=== PATIENT | male | born 1945 | race Caucasian/White ===

== ENCOUNTER 2018-09-02 12:59 | Outpatient (REF) | payer MEDICARE, MEDICAID, SELFPAY ==
[2018-09-02 20:14] LABS: Anion Gap 8.7 mmol/L (3-11); BUN 16 mg/dL (7-18); CO2 28.3 mmol/L (21.0-32.0); Calcium 8.7 mg/dL (8.5-10.1); Chloride 102 mmol/L (98-107); Glucose 99 mg/dL (70-100); Potassium 4.7 mmol/L (3.5-5.1); Sodium 139 mmol/L (136-145); Vitamin B12 614 pg/mL (193-986)
== END 2018-09-02 13:19 ==
LOC: NCHCN 12:59
PROVIDERS: PCP Nurse Practitioner Family; Visit Provider Nurse Practitioner Family
DX: D51.0 Vitamin B12 deficiency anemia due to intrinsic factor deficiency (principal); I10 Essential (primary) hypertension
CPT/HCPCS: 80048; 82607

== ENCOUNTER 2019-03-02 12:10 | Outpatient (REF) | payer MEDICARE, MEDICAID, SELFPAY ==
[2019-03-02 13:57] LABS: HCT 40.2 % (40.0-50.0); HGB 13.6 g/dL (13.5-17.5); Mean Corp. HGB Concentration 33.8 g/dL (32.0-36.0); Mean Corpuscular Hemoglobin 29.7 pg (27.0-33.0); Mean Corpuscular Volume 87.8 fL (80-95); Mean Platelet Volume 11.6 fL (8.0-11.0); Platelet Count 236 x1000/uL (130-400); RBC 4.58 m/cumm (4.50-6.00); RBC Distribution Width 19.1 % (11.8-14.1); White Blood Cell Count 13.73 k/cumm (4.4-10.8)
[2019-03-02 14:29] LABS: Vitamin B12 829 pg/mL (193-986)
== END 2019-03-02 12:30 ==
LOC: NCHCN 12:10
PROVIDERS: PCP Nurse Practitioner Family; Visit Provider Nurse Practitioner Family
DX: D51.0 Vitamin B12 deficiency anemia due to intrinsic factor deficiency (principal)
CPT/HCPCS: 85027; 82607

== ENCOUNTER 2019-03-16 11:10 | Outpatient (REF) | payer MEDICARE, MEDICAID, SELFPAY ==
[2019-03-16 18:57] LABS: Anion Gap 9.5 mmol/L (3-11); BUN 14 mg/dL (7-18); CO2 27.5 mmol/L (21.0-32.0); CREATININE 0.84 mg/dL (0.70-1.30); Calcium 8.6 mg/dL (8.5-10.1); Calculated LDL 124 mg/dL; Chloride 101 mmol/L (98-107); Cholesterol 204 mg/dL (50-200); Glucose 96 mg/dL (70-100); HDL Cholesterol 55 mg/dL (40-60); Potassium 4.5 mmol/L (3.5-5.1); Sodium 138 mmol/L (136-145); Triglyceride 128 mg/dL (30-150)
== END 2019-03-16 11:30 ==
LOC: NCHCN 11:10
PROVIDERS: PCP Nurse Practitioner Family; Visit Provider Nurse Practitioner Family
DX: E78.5 Hyperlipidemia, unspecified (principal); I10 Essential (primary) hypertension
CPT/HCPCS: 80048; 80061; 83721

== ENCOUNTER 2020-03-29 11:08 | Outpatient (REF) | payer MEDICARE, MEDICAID, SELFPAY ==
[2020-03-29 18:36] LABS: HCT 32.9 % (40.0-50.0); HGB 10.3 g/dL (13.5-17.5); MCH 31.2 pg (27.0-33.0); MCHC 31.3 % (32.0-36.0); MCV 99.7 fL (80-95); Platelet Count 272 10^3/uL (130-400); RDW 17.6 % (11.8-14.1); RDW-SD 64.3 fL
[2020-03-29 19:27] LABS: Anion Gap 8.2 mmol/L (3-11); BUN 26 mg/dL (7-18); CO2 26.8 mmol/L (21.0-32.0); CREATININE 1.17 mg/dL (0.70-1.30); Chloride 105 mmol/L (98-107); Glucose 101 mg/dL (74-106); Potassium 4.8 mmol/L (3.5-5.1); Sodium 140 mmol/L (136-145); Vitamin B12 1319 pg/mL (193-986)
[2020-03-29 19:46] LABS: WBC 94.44 10^3/uL (4.4-10.8)
== END 2020-03-29 11:28 ==
LOC: NCHCN 11:08
PROVIDERS: PCP Nurse Practitioner Family; Visit Provider Nurse Practitioner Family
DX: I10 Essential (primary) hypertension (principal); D51.0 Vitamin B12 deficiency anemia due to intrinsic factor deficiency
CPT/HCPCS: 80048; 85027; 82607

== ENCOUNTER 2020-04-07 22:28 | Outpatient (REF) | payer MEDICARE, MEDICAID, SELFPAY ==
[2020-04-07 14:54] LABS: HCT 29.7 % (40.0-50.0); HGB 9.5 g/dL (13.5-17.5); MCH 31.7 pg (27.0-33.0); MPV 11.5 fL (8.0-11.0); Platelet Count 306 10^3/uL (130-400); RDW 17.4 % (11.8-14.1); RDW-SD 62.8 fL
[2020-04-07 15:10] LABS: WBC 100.42 10^3/uL (4.4-10.8)
[2020-04-07 15:33] LABS: Absolute Lymphocyte Count 7.03 10^3/uL (1.2-3.4); Absolute Monocyte Count 11.05 10^3/uL (0.1-0.8); Absolute Neutrophil Count 61.26 10^3/uL (1.2-6.7); Bands % 19; Metamyelocytes % 12; Myelocytes % 9; Nucleated RBC 1 %
[2020-04-07 15:34] LABS: Diff Comment Manual Differential
== END 2020-04-07 22:48 ==
LOC: NCHCN 22:28
PROVIDERS: PCP Nurse Practitioner Family; Visit Provider Nurse Practitioner Family
DX: D72.829 Elevated white blood cell count, unspecified (principal)
CPT/HCPCS: 85025

== ENCOUNTER 2020-06-17 13:36 | Outpatient (REF) | payer MEDICARE, MEDICAID, SELFPAY ==
[2020-06-17 18:54] LABS: Abs Immature Grans 0.22 10^3/uL (0.0-0.06); Absolute Basophil Count 0.27 10^3/uL (0.0-0.2); Absolute Eosinophil Count 0.28 10^3/uL (0.0-0.7); Absolute Lymphocyte Count 2.47 10^3/uL (1.2-3.4); Absolute Monocyte Count 3.65 10^3/uL (0.1-0.8); Absolute Neutrophil Count 5.32 10^3/uL (1.2-6.7); Basophils % 2.2; Eosinophils % 2.3; HCT 30.9 % (40.0-50.0); HGB 10.2 g/dL (13.5-17.5); Immature Grans % 1.8; Lymphocytes % 20.2; MPV 10.9 fL (8.0-11.0); Monocytes % 29.9; Neutrophils % 43.6; Nucleated RBC 0 %; Platelet Count 394 10^3/uL (130-400); RBC 3.09 10^6/uL (4.36-5.78); RDW 18.7 % (11.8-14.1); WBC 12.21 10^3/uL (4.4-10.8)
[2020-06-17 19:14] LABS: Diff Comment Agrees w/ Instrument; RBC Morphology Normal
== END 2020-06-17 13:56 ==
LOC: LBN 13:36
PROVIDERS: PCP Nurse Practitioner Family; Visit Provider Internal Medicine Hematology & Oncology
DX: C93.10 Chronic myelomonocytic leukemia not having achieved remission (principal)
CPT/HCPCS: 85025

== ENCOUNTER 2020-06-30 13:56 | Outpatient (REF) | payer MEDICARE, MEDICAID, SELFPAY ==
[2020-06-30 18:02] LABS: Abs Immature Grans 0.26 10^3/uL (0.0-0.06); Absolute Basophil Count 0.24 10^3/uL (0.0-0.2); Absolute Eosinophil Count 0.13 10^3/uL (0.0-0.7); Absolute Lymphocyte Count 2.84 10^3/uL (1.2-3.4); Absolute Monocyte Count 4.47 10^3/uL (0.1-0.8); Absolute Neutrophil Count 3.89 10^3/uL (1.2-6.7); Eosinophils % 1.1; HCT 34.1 % (40.0-50.0); HGB 10.8 g/dL (13.5-17.5); Immature Grans % 2.2; MCH 32.9 pg (27.0-33.0); MCHC 31.7 % (32.0-36.0); Monocytes % 37.8; Neutrophils % 32.9; Nucleated RBC 0 %; Platelet Count 273 10^3/uL (130-400); RBC 3.28 10^6/uL (4.36-5.78); RDW-SD 72.5 fL; WBC 11.83 10^3/uL (4.4-10.8)
[2020-06-30 18:35] LABS: Diff Comment Agrees w/ Instrument; Macrocytosis 1+; Ovalocytes 2+
== END 2020-06-30 14:16 ==
LOC: NCHCN 13:56
PROVIDERS: PCP Nurse Practitioner Family; Visit Provider Nurse Practitioner Family
DX: D72.829 Elevated white blood cell count, unspecified (principal)
CPT/HCPCS: 85025

== ENCOUNTER 2020-07-14 14:07 | Outpatient (REF) | payer MEDICARE, MEDICAID, SELFPAY ==
[2020-07-14 19:48] LABS: Abs Immature Grans 0.85 10^3/uL (0.0-0.06); HCT 35.1 % (40.0-50.0); HGB 11.5 g/dL (13.5-17.5); MCH 33.2 pg (27.0-33.0); MCHC 32.8 % (32.0-36.0); MCV 101.4 fL (80-95); MPV 11.1 fL (8.0-11.0); Nucleated RBC 0 %; RBC 3.46 10^6/uL (4.36-5.78); RDW 18.7 % (11.8-14.1); RDW-SD 69.9 fL
[2020-07-14 20:19] LABS: Platelet Count 350 10^3/uL (130-400); WBC 15.89 10^3/uL (4.4-10.8)
[2020-07-14 20:20] LABS: Absolute Lymphocyte Count 3.18 10^3/uL (1.2-3.4); Absolute Monocyte Count 6.36 10^3/uL (0.1-0.8); Absolute Neutrophil Count 6.04 10^3/uL (1.2-6.7); Atypical Lymphocytes % 1; Bands % 3; Diff Comment Manual Differential; Macrocytosis 1+; Metamyelocytes % 1; Myelocytes % 1
[2020-07-14 20:21] LABS: Poikilocytes 1+
== END 2020-07-14 14:27 ==
LOC: NCHCN 14:07
PROVIDERS: PCP Nurse Practitioner Family; Visit Provider Nurse Practitioner Family
DX: D51.0 Vitamin B12 deficiency anemia due to intrinsic factor deficiency (principal)
CPT/HCPCS: 85025

== ENCOUNTER 2020-07-28 19:34 | Outpatient (REF) | payer MEDICARE, MEDICAID, SELFPAY ==
[2020-07-28 18:12] LABS: Abs Immature Grans 0.56 10^3/uL (0.0-0.06); HCT 33.5 % (40.0-50.0); MCH 33.2 pg (27.0-33.0); MCHC 32.8 % (32.0-36.0); MCV 101.2 fL (80-95); MPV 11.2 fL (8.0-11.0); Nucleated RBC 0 %; Platelet Count 369 10^3/uL (130-400); RBC 3.31 10^6/uL (4.36-5.78); RDW 18.5 % (11.8-14.1); RDW-SD 68.1 fL; WBC 14.89 10^3/uL (4.4-10.8)
[2020-07-28 18:55] LABS: Absolute Lymphocyte Count 4.32 10^3/uL (1.2-3.4); Absolute Monocyte Count 5.51 10^3/uL (0.1-0.8); Absolute Neutrophil Count 4.62 10^3/uL (1.2-6.7); Bands % 1; Diff Comment Manual Differential; Macrocytosis 1+; Metamyelocytes % 1; Polychromasia Present
[2020-07-28 18:56] LABS: Poikilocytes 1+
== END 2020-07-28 19:54 ==
LOC: NCHCN 19:34
PROVIDERS: PCP Nurse Practitioner Family; Visit Provider Nurse Practitioner Family
DX: D72.829 Elevated white blood cell count, unspecified (principal)
CPT/HCPCS: 85025

== ENCOUNTER 2020-08-11 14:02 | Outpatient (CLI) | payer MEDICARE, MEDICAID, SELFPAY ==
[2020-08-11 14:36] LABS: Abs Immature Grans 0.31 10^3/uL (0.0-0.06); Absolute Eosinophil Count 0.27 10^3/uL (0.0-0.7); Absolute Lymphocyte Count 2.91 10^3/uL (1.2-3.4); Basophils % 1.1; Eosinophils % 2.2; HCT 34.5 % (40.0-50.0); HGB 11.4 g/dL (13.5-17.5); Immature Grans % 2.5; Lymphocytes % 23.7; MCH 33.7 pg (27.0-33.0); MCV 102.1 fL (80-95); MPV 10.5 fL (8.0-11.0); Monocytes % 29.3; Neutrophils % 41.2; Nucleated RBC 0 %; Platelet Count 350 10^3/uL (130-400); RBC 3.38 10^6/uL (4.36-5.78); RDW-SD 66.7 fL; WBC 12.27 10^3/uL (4.4-10.8)
[2020-08-11 14:45] LABS: Absolute Basophil Count 0.13 10^3/uL (0.0-0.2); Absolute Neutrophil Count 5.06 10^3/uL (1.2-6.7)
[2020-08-11 14:59] LABS: Anisocytosis 2+; Diff Comment Agrees w/ Instrument; Macrocytosis 2+
[2020-08-11 15:00] LABS: Poikilocytes 2+
[2020-08-11 17:08] LABS: ALT 12 U/L (16-63); AST 12 U/L (15-37); Albumin 4.2 g/dL (3.4-5.0); Alkaline Phosphatase 60 U/L (46-116); Anion Gap 9.6 mmol/L (3-11); BUN 20 mg/dL (7-18); CO2 25.4 mmol/L (21.0-32.0); Calcium 8.9 mg/dL (8.5-10.1); Chloride 101 mmol/L (98-107); Estimated GFR 58.71 (mL/min/1.73m2); Glucose 95 mg/dL (74-106); Potassium 4.9 mmol/L (3.5-5.1); Sodium 136 mmol/L (136-145); Total Protein 7.5 g/dL (6.4-8.2)
== END 2020-08-11 14:22 ==
PROVIDERS: PCP Nurse Practitioner Family; Visit Provider Internal Medicine Hematology & Oncology
DX: C93.10 Chronic myelomonocytic leukemia not having achieved remission (principal)
CPT/HCPCS: 36415; 80053; 85025

== ENCOUNTER 2020-11-02 14:41 | Observation (INO) | payer MEDICARE, MEDICAID, SELFPAY ==
[2020-11-02] VITALS (181 sets, daily range): BP systolic 54–134; BP diastolic 21–87; PULSE 52–179; RESP 9–26; TEMP 36.6; O2SAT 95–100
--- NOTE | 2020-11-02 14:30 | RT.EKG_ITS ---
APPROVED REPORT Exam: Resting ECG Patient Location: E HR:177 bpm ECG Measurements Heart Rate 177 AXIS ND [id number] P [id number] QRSd 80 QRS 7 QT 303 T 91 QTc 520 Conclusion Atrial fibrillation with rapid V-rate...A-rate 517 Repolarization abnormality, prob rate related...ST dep, T neg, tachycardia. Suspect SVT more than Afib. Appears regular. Diffuse ST depression. No STEMI.
--- NOTE | 2020-11-02 14:45 | RT.EKG_ITS ---
APPROVED REPORT Exam: Resting ECG Patient Location: E HR:175 bpm ECG Measurements Heart Rate 175 AXIS MI 60 P 192 QRSd 81 QRS -7 QT 265 T 111 QTc 454 Conclusion Supraventricular tachycardia...V-rate>(220-age), QRSd<120 Repolarization abnormality, prob rate related...ST dep, T neg, tachycardia I have reviewed and interpreted ECG and agree with software generated interpretation.
--- NOTE | 2020-11-02 15:00 | RT.EKG_ITS ---
APPROVED REPORT Exam: Resting ECG Patient Location: E HR:57 bpm ECG Measurements Heart Rate 57 AXIS [place] 153 P 39 QRSd 85 QRS -13 QT 370 T 51 QTc 362 Conclusion Sinus bradycardia. no diagnostic st changes
--- NOTE | 2020-11-02 15:03 | ED.GENADUL_ITS ---
Discharge Plan Disposition Patient Disposition: [facility] INPATIENT Condition: Stable Discharge Details Clinical Impression: SVT (supraventricular tachycardia), Chest pain, Elevated troponin Admit Date/Time: 11/03/20 08:46 Admit Provider: Adam Vigil Attending Provider: Adam Vigil Primary Care Provider: Deborah Prescott ED Provider: Nelda Lance Discharge Data Discharge Date/Time-TO BE ENTERED AT DEPARTURE: 11/03/20 10:31 Medical Decision Making <SHIRIN Geller - Last Filed: 11/03/20 08:25> This is a 75-year-old gentleman, past medical history of leukemia, hypertension, SVT, presenting to the ER today for what he described as a rapid heart rate that began around 10 AM. Seen by his primary care provider prior to arrival, noted to be in SVT, sent to the ER for evaluation. Upon arrival heart rate noted to be in the 180s, blood pressure 93/64. Patient is awake, alert, normal mentation. Case was immediately discussed with Dr. Lance, immediately obtained EKG and IV access with IV fluid infusing. Initial EKG performed at 1447, please see official report by Dr. Lance. Question of atrial fibrillation with artifact versus SVT, ventricular rate in the 170s. We immediately obtained a repeat EKG at 1453 for clarity. This appears to be more consistent with supraventricular tachycardia, ventricular rate of 175. Attempted Valsalva maneuvers, unsuccessful. The case was again discussed with Dr. Lance. Will proceed with adenosine. The crash cart was brought into room 2. This was occurring as there was a shift change, supervising physician is now Dr. Julien who is immediately brought up to speed as to what was happening with Mr. Rojas. He was in room for evaluation, please see his note. We initially tried 6 mg of adenosine without any change of rhythm. Subsequently gave 12 mg x 2 without any change. A second line of IV access obtained. Patient given a 250 IV fluid bolus. Will now attempt 10 IV Cardizem and initiate a drip starting at 5 but will promptly increase to 10 and subsequently 15. Heart rate now at 158. Blood pressure is 83/64. Cardizem drip increased to 10. Heart rate remaining in the 160s, blood pressure seems to be stable in the 90s over 60s. We will once again increase the drip to 15. Heart rate remaining in the 160s, 2 view chest x-ray changed to a one-view portable. Patient also given full dose aspirin. I was in the process of signing the patient out to my colleague SHIRIN Paez at approximately 1558and on the library monitor we witnessed his rhythm break, heart rate of 62. Will obtain a repeat EKG. Cardizem drip discontinued Medical Records Medical records reviewed: Yes I reviewed the patient's medical records. Lab Data Lab results reviewed: Yes I reviewed the patient's lab results. Lab results narrative: Laboratory Tests Range/Units 11/02/20 11/02/20 11/02/20 14:50 14:50 14:50 WBC (4.4-10.8) 10^3/uL 14.18 H RBC (4.36-5.78) 10^6/uL 3.79 L Hgb (13.5-17.5) g/dL 12.6 L Hct (40.0-50.0) % 38.7 L MCV (80-95) fL 102.1 H MCH (27.0-33.0) pg 33.2 H MCHC (32.0-36.0) % 32.6 RDW (11.8-14.1) % 18.0 H Plt Count (130-400) 10^3/uL 338 MPV (8.0-11.0) fL 10.3 Immature Gran % 2.4 Neutrophils % 41.3 Lymphocytes % 19.2 Monocytes % 35.3 Eosinophils % 0.8 Basophils % 1.0 Nucleated RBC % % 0 Absolute Neutrophils (1.2-6.7) 10^3/uL 5.86 Absolute Lymphocytes (1.2-3.4) 10^3/uL 2.72 Absolute Monocytes (0.1-0.8) 10^3/uL 5.01 H Absolute Eosinophils (0.0-0.7) 10^3/uL 0.11 Absolute Basophils (0.0-0.2) 10^3/uL 0.14 RBC Morphology See below Macrocytosis 2+ PT (9.3-11.0) sec 10.4 INR (0.9-1.1) 1.0 APTT (21.0-27.5) sec 26.0 Sodium (136-145) mmol/L 137 Potassium (3.5-5.1) mmol/L 4.8 Chloride (98-107) mmol/L 101 Carbon Dioxide (21.0-32.0) mmol/L 25.6 Anion Gap (3-11) mmol/L 10.4 BUN (7-18) mg/dL 19 H Creatinine (0.70-1.30) mg/dL 1.2 Estimated GFR/1.73 m2 (mL/min/1.73m2) 58.71 Glucose (74-106) mg/dL 108 H Calcium (8.5-10.1) mg/dL 8.6 Magnesium (1.8-2.4) mg/dL 1.7 L Total Bilirubin (0.2-1.0) mg/dL 1.1 H AST (15-37) U/L 13 L ALT (16-63) U/L 18 Alkaline Phosphatase (46-116) U/L 77 Troponin I (<0.06) ng/mL < 0.05 Total Protein (6.4-8.2) g/dL 8.2 Albumin (3.4-5.0) g/dL 4.1 TSH (0.36-3.74) uIU/mL 1.98 <Paco Julien MD - Last Filed: 11/02/20 16:17> Patient seen, examined [id number], managed at the bedside with Mr. Connell. I agree with his plan. <SHIRIN Serrano - Last Filed: 11/04/20 11:00> Care transitioned to myself from Adam Connell PA-C with repeat troponin pending. Patient had initially presented with SVT with a rate in the 170s. At the time I assumed care, patient had just transitioned to NSR with rate of 62. Patinet was reevaluated, he states that his symptoms have resolved, no persistent CP. Repeat ECG was obtained and reviewed by Dr. Julien. Patient was in sinus bradycardia with rate of 57, no acute ischemic changes noted. Pressure is stable. Plan for 4 hour troponin. Repeat troponin is elevated at 0.34. This is likely demand associated with his prolonged SVT. He is not having any CP. Received ASA initially. Discussed with patient. We do not have beds here. [place] [facility] [place] no beds are available. Consulted with [facility] cardiology and spoke with Dr. Cope. He advised likely demand and does not feel that emergent intervention is warranted. He does not feel that transfer is appropriate at this time nor do they have beds. He advised to continue to trend troponins and obtain stress testing tomorrow. Patient reports that he had a stress test and echo last year at [facility]. Spoke with local hospitals that have inpatient beds, they are unable to accept patient. Plan to keep patient in the ED and continue to trend his troponins. Patient and his prefer that he remain here if possible. Patient remains hemodynamically stable and asymptomatic. He is eating dinner. Repeat troponin stable at 0.40. Spoke with Dr. aJy with [facility] [place]. He did not recommend heparinizing the patient. He did advise that at the time of discharge patient metoprolol could be increased to 50 mg 3 times daily or continue with the twice daily dosing and reserve 1 tab for as needed use if he has any recurrence of his SVT. Patient remains asymptomatic at this time. He did not recommend further medication currently. At the end of my shift, care transition to Dr. Scott to continue to trend troponins with plan for stress test in the morning. 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 <Nelda Lance DO - Last Filed: 11/05/20 11:11> 0800 --please see previous providers notes for initial presentation, exam and plan. Case endorsed to follow-up with hospitalist this morning for admission for continued monitoring, trending troponins and hopeful stress test today. board of education secretary discussed with cardiology office and they can attempt to do MPI stress today but will take time to receive the injectable and they are done at [address] Rosenberg and will admit for observation, and will attempt to get stress test today but will plan for outpatient stress test if unable. Patient is currently chest pain-free. 0845 --radiology is able to do the MPI stress this morning. 1030 --Pt in stress lab now. Stress lab called to state they spoke with Dr. Bonner who is not recommending stress test at this time as his heart rate was significantly elevated yesterday and his troponins are still elevated. He is recommending they do the stress portion on Saturday. Patient to go directly to the floor at this time. HPI <SHIRIN Geller - Last Filed: 11/03/20 08:25> General Mode of arrival: ambulatory . Date/Time Provider Initiated Documentation: 11/02/20 14:42 . Limitations to Documentation: no limitations . Information obtained by: patient . HPI Narrative: This is a 75-year-old gentleman, presenting to the ER for evaluation. Apparently he was seen by his primary care office prior to arrival, had an EKG and was found to be in SVT, sent immediately to the ER. Patient states that he has a past medical history of leukemia, hypertension, and SVT. He is followed by cardiology in [place]. He states that at approximately 10 AM this morning while at rest he felt his heart race with an associated 4 out of 10 pressure on the left of his chest. He was asymptomatic prior to that. He denies recent illness or trauma. He denies headache, neck pain, shortness of breath, back pain, neck pain, abdominal pain, nausea, vomiting, numbness, tingling, weakness. He states that he has been having these episodes for several years and was placed on metoprolol. He questions if he needs to be placed on a calcium channel rod via his own research. He states over the past several months he has been having increasing induration episodes as well as frequency. Typically they do not last this long, they resolve spontaneously, and he does not seek any medical attention. Related Data Home Medications Medication Instructions Recorded Confirmed hydroxyurea 1,000 mg PO DAILY 11/02/20 11/03/20 lisinopril-hydrochlorothiazide 1 tab PO DAILY 11/02/20 11/02/20 metoprolol tartrate 50 mg PO BID 11/02/20 11/02/20 Allergies Allergy/AdvReac Type Severity Reaction Status Date / Time Sulfa (Sulfonamide Allergy Unverified 11/02/20 14:57 Antibiotics) General Stated Complaint: Palpitatns BAUTISTA: 2 Review of Systems <SHIRIN Geller - Last Filed: 11/03/20 08:25> Constitutional Constitutional: Denies fatigue, Denies fever(s), Denies headache(s) and Denies weakness Eyes Eyes: Denies change in vision ENT Ears, Nose, Mouth, and Throat: Denies headache(s) Cardiovascular Cardiovascular: Reports chest pain, Reports palpitations and Denies dyspnea Respiratory Respiratory: Denies cough and Denies dyspnea Gastrointestinal Gastrointestinal: Denies abdominal pain, Denies nausea and Denies vomiting Genitourinary Genitourinary: Denies dysuria Musculoskeletal Musculoskeletal: Denies back pain, Denies numbness and Denies tingling Integumentary/Breasts Skin/Breast: Denies rash Neurologic Neurologic: Denies headache(s), Denies numbness, Denies tingling and Denies weakness Endocrine Endocrine: Denies fatigue and Reports palpitations Hematologic/Lymphatic Hematologic/Lymphatic: Denies easy bleeding and Denies easy bruising PFSH <SHIRIN Geller - Last Filed: 11/03/20 08:25> Medical History (Updated 11/05/20 @ 11:11 by Nelda Lance DO) CML (chronic myelocytic leukemia) HTN (hypertension) Hx of hyperlipidemia Kidney stones Obesity SVT (supraventricular tachycardia) Surgical History (Updated 11/03/20 @ 09:25 by Nelda Lance DO) Kidney stones kidney stone removal Social History Smoking/Tobacco Use Status: Former Tobacco Use Smoking risk assessment performed?: Yes Alcohol Intake: former Drug use: Never Do you feel safe at home: Yes Do you feel safe in your relationship?: Yes Exam <SHIRIN Geller - Last Filed: 11/03/20 08:25> Const General: cooperative and healthy appearing Orientation: alert, awake and oriented x3 HENMT Head: normal to inspection, normocephalic and atraumatic Face and sinus: normal facial exam Mouth: moist mucous membranes Eyes General: appearance normal, both eyes and all related structures Eyelids: eyelids normal Conjunctivae: conjunctivae normal Neck Neck: normal visual inspection, full ROM, trachea midline, supple and nontender Resp Effort & Inspection: normal respiratory effort and able to speak in complete sentences Auscultation: clear to auscultation bilaterally Cardio Rate: tachycardic (180s) Rhythm: regular rhythm GI Inspection: normal to inspection Palpation: soft, no pulsatile masses and nontender Back/Spine/Pelvis Back: No back tenderness Skin General skin exam: no rashes or lesions noted Neuro General: patient alert, patient awake, patient oriented x3, moves all extremities and no focal motor deficits Cognition: normal cognition Speech: speech normal Gait: normal gait Motor: muscle tone normal throughout Sensory Exam: no sensory deficits noted Extrem General: normal to inspection, full ROM, capillary refill normal and no calf t enderness Psych Appearance: grossly normal Mental Status: mental status grossly normal Course <SHIRIN Geller - Last Filed: 11/03/20 08:25> Vital Signs Vital signs: Vital Signs Temperature 36.6 C 11/02/20 14:47 Pulse 177 H 11/02/20 14:47 Respiratory Rate 18 11/02/20 14:47 Blood Pressure 93/64 L 11/02/20 14:47 Pulse Oximetry 97 11/02/20 14:47 Temperature 36.6 C 11/02/20 14:47 Temperature Source Temporal Artery Scan 11/02/20 14:47 Pulse 177 H 11/02/20 14:47 Respiratory Rate 18 11/02/20 14:47 Respiratory Effort Non-Labored 11/02/20 14:55 Blood Pressure 93/64 L 11/02/20 14:47 Blood Pressure Position Supine 11/02/20 14:47 Pulse Oximetry 97 11/02/20 14:47 Oxygen Delivery Method Room Air 11/02/20 14:47 Oxygen Flow Rate 0 11/02/20 14:47 Pain Level 4 11/02/20 14:47 Critical Care Time <SHIRIN Geller Last Filed: 11/03/20 08:25> Critical Care Time Critical Care Time: Yes Total Critical Care Time: 45 Attestation: Upon my evaluation, this patient had a high probability of clinically significant, life-threatening deterioration due to their current medical conditions, which required my direct attention, intervention, and personal management. I have personally provided greater than 30 minutes of critical care time exclusive of the time spend on separately billable procedures. Time includes obtaining a history, examining the patient, pulse oximetry, review of laboratory data, radiology results, discussion with consultants, arranging urgent treatment with development of a management plan, evaluation of patient's response to treatment, and monitoring for potential decompensation. Interventions were performed as documented above. Sign Out <SHIRIN Geller Last Filed: 11/03/20 08:25> Sign Out Data: Sign Out Comment: Presented with what appeared to be SVT, given adenosine 6, 12, 12, without any change of symptoms. Subsequently given 10 IV Cardizem and a drip initiated at 5, up to 10, then subsequently up to 15. During signout rhythm converted. Obtaining repeat EKG. Last updated by Adam Connell PA at 11/02/20 16:10 Sign Out Comment: Care transition to Dr. Scott. Patient will be boarding in the ED overnight with plan to continue to trend troponins and stress testing tomorrow. [place] [facility] [place] that we could increase the patient metoprolol to 3 times daily dosing or continue with twice daily dosing and have him take 1 as needed if he has recurrence of his SVT. I feel that the elevated troponin is likely associated with demand ischemia from his long run of SVT. Last updated by Katharine Paez PA at 11/02/20 23:46 Sign Out Comment: Patient had SVT and elevated troponin. Patient has been rate and rhythm controlled during his evenings here. No beds are available at any surrounding facilities including [facility] and [facility]. Patient remaining here in the ED until stress test can be performed in morning. Troponins are downtrending, no chest pain. Patient remained stable. [facility] cardiology had no additional recommendations and does not recommend heparinization. Follow-up with [facility] after stress testing Last updated by Michael Scott DO at 11/03/20 06:23
[2020-11-02] MEDS: Normal Saline 1,000 ML 150 ML IV (15:09)
[2020-11-02] MEDS: Adenosine 6 MG/2 ML VIAL IVP (15:09)
[2020-11-02 15:12] LABS: Abs Immature Grans 0.34 10^3/uL (0.0-0.06); Absolute Basophil Count 0.14 10^3/uL (0.0-0.2); Absolute Eosinophil Count 0.11 10^3/uL (0.0-0.7); Absolute Lymphocyte Count 2.72 10^3/uL (1.2-3.4); Eosinophils % 0.8; HCT 38.7 % (40.0-50.0); HGB 12.6 g/dL (13.5-17.5); Immature Grans % 2.4; Lymphocytes % 19.2; MCH 33.2 pg (27.0-33.0); MCHC 32.6 % (32.0-36.0); MCV 102.1 fL (80-95); MPV 10.3 fL (8.0-11.0); Monocytes % 35.3; Neutrophils % 41.3; Nucleated RBC 0 %; Platelet Count 338 10^3/uL (130-400); RBC 3.79 10^6/uL (4.36-5.78); RDW-SD 67.7 fL; WBC 14.18 10^3/uL (4.4-10.8)
[2020-11-02] MEDS: Adenosine 6 MG/2 ML VIAL ×3 (15:15→15:20)
[2020-11-02 15:26] LABS: Prothrombin Time 10.4 sec (9.3-11.0)
[2020-11-02] MEDS: dilTIAZem 25 MG/5 ML VIAL 10 MG IVP (15:27)
[2020-11-02 15:33] LABS: Absolute Monocyte Count 5.01 10^3/uL (0.1-0.8); Absolute Neutrophil Count 5.86 10^3/uL (1.2-6.7)
[2020-11-02 15:34] LABS: ALT 18 U/L (16-63); AST 13 U/L (15-37); Albumin 4.1 g/dL (3.4-5.0); Alkaline Phosphatase 77 U/L (46-116); Anion Gap 10.4 mmol/L (3-11); BUN 19 mg/dL (7-18); Bilirubin, Total 1.1 mg/dL (0.2-1.0); CO2 25.6 mmol/L (21.0-32.0); CREATININE 1.2 mg/dL (0.70-1.30); Calcium 8.6 mg/dL (8.5-10.1); Chloride 101 mmol/L (98-107); Estimated GFR 58.71 (mL/min/1.73m2); Glucose 108 mg/dL (74-106); Magnesium 1.7 mg/dL (1.8-2.4); Potassium 4.8 mmol/L (3.5-5.1); Sodium 137 mmol/L (136-145); TSH 1.98 uIU/mL (0.36-3.74); Total Protein 8.2 g/dL (6.4-8.2); Troponin I < 0.05 ng/mL (<0.06)
[2020-11-02] MEDS: dilTIAZem 125 MG in Normal Saline 100 ML IV (15:36)
[2020-11-02 15:43] LABS: Diff Comment Diff Reviewed; Macrocytosis 2+
[2020-11-02] MEDS: Aspirin 81 MG CHEW 324 MG CH (15:59)
--- NOTE | 2020-11-02 16:05 | DI.RAD_ITS ---
EXAM: XR PORTABLE CHEST AP CLINICAL HISTORY: svt/pain TECHNIQUE: 2D digital imaging was performed. COMPARISON: CR CHEST 2 VIEWS PA,LAT from 02/19/2018 FINDINGS: MEDIASTINUM: Normal. HEART: Normal. PULMONARY VASCULATURE: Normal. LUNGS: Clear. PLEURAL SPACE: No pleural effusion or pneumothorax. BONE:Within normal limits for the patient's age. OTHER FINDINGS:Normal. IMPRESSION: No acute pulmonary findings. DATA REPOSITORY: RADIATION DOSE DELIVERED:
--- NOTE | 2020-11-02 16:11 | DI.VRAD_ITS ---
PROCEDURE INFORMATION: Exam: XR Chest Exam date and time: 11/02/2020 4:04 PM Age: 75 years old Clinical indication: Other: Svt/pain; Chest pain; Type not specified TECHNIQUE: Imaging protocol: XR of the chest Views: 1 view. COMPARISON: CR CHEST 2 VIEWS PA,LAT 02/19/2018 7:34 PM FINDINGS: Lungs: Unremarkable. No consolidation. Pleural spaces: Unremarkable. No pleural effusion. No pneumothorax. Heart/Mediastinum: Unremarkable. No cardiomegaly. Bones/joints: Unremarkable. IMPRESSION: No acute findings. Dictated and Authenticated by: Kamorn Salazar MD. Ordering:LIU Medina MD
--- NOTE | 2020-11-02 16:29 | NUR.NOTE ---
pt provided with meal tray Nursing Note:
--- NOTE | 2020-11-02 16:50 | NUR.NOTE ---
pt asymptomatic with low BP Nursing Note:
[2020-11-02 19:17] LABS: Troponin I 0.34 ng/mL (<0.06)
--- NOTE | 2020-11-02 19:30 | RT.EKG_ITS ---
APPROVED REPORT Exam: Resting ECG Patient Location: E HR:65 bpm ECG Measurements Heart Rate 65 AXIS TN 155 P 32 QRSd 90 QRS -15 QT 412 T 31 QTc 428 Conclusion Sinus rhythm...normal P axis, V-rate 60- 99
[2020-11-02] MEDS: Metoprolol 50 MG TAB PO (21:01)
--- NOTE | 2020-11-02 21:45 | RT.EKG_ITS ---
APPROVED REPORT Exam: Resting ECG Patient Location: E HR:57 bpm ECG Measurements Heart Rate 57 AXIS AR 153 P 41 QRSd 92 QRS -10 QT 439 T 29 QTc 427 Conclusion Sinus Bradycardia, rate [address] elevation
[2020-11-03] VITALS (95 sets, daily range): BP systolic 52–152; BP diastolic 41–105; PULSE 49–73; RESP 8–24; TEMP 36; O2SAT 93–98
--- NOTE | 2020-11-03 | DI.US_ITS ---
APPROVED REPORT EXAM: Comprehensive 2D, Doppler, and color-flow Echocardiogram Patient Location: ER Room/Bed: 7 Chisel Mortiser Operator: Varsha Felton RDCS (AE) Indications: SVT,Elevated troponin Other Information Study Quality: Good Conclusion Left Ventricle : The left ventricle is normal size. The left ventricular systolic function is normal. The left ventricular ejection fraction is within the normal range. Borderline concentric left ventri cular hypertrophy. There is normal LV segmental wall motion. The left ventricular diastolic function is normal. LVEF is 65%. Right Ventricle : The right ventricle is normal size. The right ventricular systolic function is norm al. The RVSP is 28.5 mmHg. Atria : Left atrium is mildly dilated. The right atrium size is normal. Aortic Valve : Aortic valve is calcified. The Aortic valve is sclerotic. Aortic valve is probably tri leaflet. No hemodynamically significant valvular aortic stenosis. Mild aortic regurgitation. Great Vessels : The aortic root is normal in size. The ascending aorta is mildly dilated. Aortic arch is not well visualized. IVC is normal in size and collapses >50% with inspiration. Please see remainder of study for further details. Wall motion Left Ventricle The left ventricle is normal size. The left ventricular systolic function is normal. The left ventric ular ejection fraction is within the normal range. Borderline concentric left ventricular hypertrophy . There is normal LV segmental wall motion. The left ventricular diastolic function is normal. There is no ventricular septal defect visualized. LVEF is 65%. Right Ventricle The right ventricle is normal size. The right ventricular systolic function is normal. The RVSP is 28 .5 mmHg. Atria Left atrium is mildly dilated. The right atrium size is normal. The interatrial septum is intact with no evidence for an atrial septal defect. Aortic Valve Aortic valve is calcified. The Aortic valve is sclerotic. Aortic valve is probably trileaflet. No hem odynamically significant valvular aortic stenosis. Mild aortic regurgitation. Mitral Valve The mitral valve is normal in structure. No evidence of mitral valve stenosis. Trace mitral regurgita tion. Tricuspid Valve The tricuspid valve is normal in structure. There is no tricuspid valve stenosis. Trace tricuspid reg urgitation. Pulmonic Valve The pulmonary valve is normal in structure. There is no pulmonic valvular stenosis. There is no pulmo mao valvular regurgitation. Great Vessels The aortic root is normal in size. The ascending aorta is mildly dilated. Aortic arch is not well vis ualized. IVC is normal in size and collapses >50% with inspiration. Pericardium There is no pericardial effusion. 2D Dimensions IVSD d PLAX 1.23 cm M: 0.6-1.2 LV Vol A2C d MOD 154.6 mL LVPW d PLAX 1.20 cm M: 0.6 - 1.2 LV Vol A4C d MOD 164.7 mL LVID d PLAX 5.63 cm M: 4.2 - 5.8 LA vol/ BSA A2C s A-L 39.4 mL/m2 LVDs 3.55 cm M: 2.5 - 4.0 LA vol/ BSA A4C s A-L 48.9 mL/m2 Ao Root d 3.61 cm M: 3.1 - 3.7 LA Vol/ BSA Biplane s A-L 44.0 mL/m2 RA Area A4C 14.49 cm2 LA Area A4C s MOD 27.89 cm2 RA Vol/ BSA A4C s A-L 17.7 mL/m2 LA Area A2C s MOD 25.12 cm2 Ao Asc Diam d 3.83 cm M: 2.6 - 3.4 LV EF A4C MOD 65.1 % LV EF Teichholz 65.8 % LV EF A2C MOD 65.9 % LVEF (Castañeda's) 63.77 % M: 52 - 72 LV EF Biplane MOD 63.8 % LV Volume 118.65 mL M: 62 - 150 SV 102.90 mL LV Volume Index 55.96 mL/m2 M: 34 - 74 SV Index 48.44 mL/m2 LV Vol Biplane MOD 161.3 mL FS 36.65 % M-Mode TAPSE 2.48 cm (M/F) >1.7 LV Diastology MV E' medial 0.096 (>0.07 m/s) E/A Ratio 1.2 LV E/e MED 10.20 (<14) MV E Vmax 0.98 (0.4-1.3 m/s) MV E' lateral 0.094 (>0.1 m/s) MV A Vmax 0.85 (0.4-1.3 m/s) LV E/e LAT 10.45 (<14) MV E/A Ratio 1.14 MV E/E' medial 10.25 MV E/E' lateral 10.46 Aortic Valve LVOT Area 3.86 cm2 AoV Area Vmax 2.47 cm2 LVOT Vmax 1.43 m/s AoV Area/ BSA (Vmax) 1.16 cm2/m2 LVOT Mean Charan. 0.86 m/s MATT Mean Charan. 2.11 cm2 LVOT Peak Grad 8.2 mmHg MATT Mean Charan. Index 0.99 cm2/m2 LVOT Mean Grad 3.6 mmHg AR DT 4267 msec LVOT VTI 0.349 m AR PHT 1237 msec LVOT Diam s 2.20 cm AoV Vmax 2.24 m/s Velocity Ratio 0.63 AoV Mean Charan. 1.58 m/s AoV Peak Grad 20.0 mmHg LVOT SV 134.69 mL AoV Mean Grad 11.2 mmHg AoV VTI 0.507 m AoV Area VTI 2.66 cm2 AoV Area/ BSA (VTI) 1.25 cm/m2 Mitral Valve MV DT 225 (160-240 msec) MR Vmax 4.33 m/s MV PHT 65 msec MR VTI 1.289 m MV Area PHT 3.37 cm2 MR Peak Grad 75.2 mmHg MV VTI 0.363 m MR Mean Grad 57.9 mmHg MV VTI Annulus 0.347 m MV Area VTI 3.55 (4.0-6.0 cm2) Pulmonary Valve PV Vmax 1.59 (0.5-1.5 m/s) RVOT Peak Gr. 3.23 mmHg PV Peak Grad 10.2 mmHg RVOT Mean Gr. 1.80 mmHg PV Mean Grad 5.3 mmHg RVOT VTI 0.231 m PV VTI 0.359 m RVOT Vmax 0.90 m/s Tricuspid Valve TR Peak Grad 25.5 mmHg TR Vmax 2.53 m/s RA Pressure 3.00 mmHg RVSP (TR) 28.5 mmHg
--- NOTE | 2020-11-03 00:30 | RT.EKG_ITS ---
APPROVED REPORT Exam: Resting ECG Patient Location: E HR:60 bpm ECG Measurements Heart Rate 60 AXIS [place] 155 P 31 QRSd 93 QRS -7 QT 445 T 32 QTc 445 Conclusion Sinus rhythm...normal P axis, V-rate 60- 99 Physician: No stemi, unchanged
[2020-11-03 01:11] LABS: Troponin I 0.33 ng/mL (<0.06)
--- NOTE | 2020-11-03 08:00 | DI.NM_ITS ---
APPROVED REPORT Patient Location: I Conclusion This resting myocardial perfusion imaging study showed a small area of perfusion defect of the romulo apical segment.
[2020-11-03 09:11] LABS: COVID-19 PCR Negative (Negative); Influenza A PCR Negative (Negative); Influenza B PCR Negative (Negative); RSV PCR Negative (Negative)
[2020-11-03 11:06] LABS: Abs Immature Grans 0.15 10^3/uL (0.0-0.06); Absolute Basophil Count 0.06 10^3/uL (0.0-0.2); Absolute Eosinophil Count 0.09 10^3/uL (0.0-0.7); Absolute Lymphocyte Count 1.42 10^3/uL (1.2-3.4); Absolute Monocyte Count 3.42 10^3/uL (0.1-0.8); Basophils % 0.6; Eosinophils % 0.9; HCT 33.6 % (40.0-50.0); HGB 11.3 g/dL (13.5-17.5); Immature Grans % 1.6; Lymphocytes % 14.9; MCH 33.5 pg (27.0-33.0); MCHC 33.6 % (32.0-36.0); MCV 99.7 fL (80-95); MPV 11.2 fL (8.0-11.0); Nucleated RBC 0 %; RBC 3.37 10^6/uL (4.36-5.78); RDW 17.8 % (11.8-14.1); RDW-SD 65.4 fL
[2020-11-03 11:10] LABS: Absolute Neutrophil Count 4.37 10^3/uL (1.2-6.7)
[2020-11-03 11:16] LABS: Anion Gap 8.7 mmol/L (3-11); BUN 15 mg/dL (7-18); CO2 24.3 mmol/L (21.0-32.0); Calcium 8.5 mg/dL (8.5-10.1); Chloride 106 mmol/L (98-107); Glucose 108 mg/dL (74-106); Magnesium 1.8 mg/dL (1.8-2.4); Potassium 4.4 mmol/L (3.5-5.1); Sodium 139 mmol/L (136-145)
[2020-11-03 11:19] LABS: Troponin I 0.17 ng/mL (<0.06)
[2020-11-03 11:25] LABS: Platelet Count 237 10^3/uL (130-400)
[2020-11-03 11:26] LABS: Anisocytosis 2+; Diff Comment Agrees w/ Instrument
[2020-11-03 11:27] LABS: Ovalocytes 2+; Poikilocytes 1+
--- NOTE | 2020-11-03 11:52 | W.PM.DS.N ---
Date of service: 11/03/20 Time of Service: 11:53 DS: Diagnosis Discharge Diagnosis (1) SVT (supraventricular tachycardia): Status: Acute Discharge Plan Disposition Patient Disposition: HOME Condition: Stable Discharge Details Reason For Visit: SVT, CHEST PAIN, ELEVATED TROPONIN Admit Date/Time: 11/03/20 08:46 Admit Provider: Adam Vigil Attending Provider: Adam Vigil Primary Care Provider: Deborah Prescott Hospital Course Hospital Course: This is a 75 year old male with history of SVT, who was at his pcp office when he experienced an episode with rate into the 170's, he reports that he has experienced PSVT for 2 years and work up to date is unrevealing. He typically does not seek emergency care but as he was at his pcp office he was referred to the ED for evaluation. He was given adenosine and ultimately placed on a cardizem drip which did convert him back to sinus rhythm. His troponin initially negative did bump and peaked at 0.40 before trending downward and at discharge is 0.17. He continued to be monitored in the ED as no beds were available. The cardizem drip was discontinued as his heart rate was 40-50's and systolic blood pressure dropped significantly into the 60's. His vitals did normalize with heart rate return to the 60's, blood pressure 100-120's. He is asymptomatic and chest pain free. The emergency department scheduled him for a stress test which cardiology deferred to outpatient in setting of elevated troponin. His case was discussed with DR Bonner who recommends that he continue his usual medication for now and he will f/u with him outpatient for further medication adjustments and cardiac work up. He was previously followed in [place] by Dr Wang and last stress test approximately one year ago with no significant findings per patient report. Echocardiogram today: Conclusion Left Ventricle : The left ventricle is normal size. The left ventricular systolic function is normal. The left ventricular ejection fraction is within the normal range. Borderline concentric left ventricular hypertrophy. There is normal LV segmental wall motion. The left ventricular diastolic function is normal. LVEF is 65%. Right Ventricle : The right ventricle is normal size. The right ventricular systolic function is normal. The RVSP is 28.5 mmHg. Atria : Left atrium is mildly dilated. The right atrium size is normal. Aortic Valve : Aortic valve is calcified. The Aortic valve is sclerotic. Aortic valve is probably trileaflet. No hemodynamically significant valvular aortic stenosis. Mild aortic regurgitation. Great Vessels : The aortic root is normal in size. The ascending aorta is mildly dilated. Aortic arch is not well visualized. IVC is normal in size and collapses >50% with inspiration. Please see remainder of study for further details. He is being discharged to home to f/u with Dr Bonner outpatient, advised to return to the ED sooner for new or worsening problems. No changes to his medications at this time. discussed with DR Vigil patient was admitted and discharged on same day, this document should serve as history and physical and discharge summary. Home Meds and New Rx's Prescriptions: Continued hydroxyurea 500 mg capsule 1,000 mg PO DAILY RF: 0 metoprolol tartrate 50 mg tablet 50 mg PO BID RF: 0 lisinopril-hydrochlorothiazide 20-25 mg tablet 1 tab PO DAILY RF: 0 Discontinued lisinopril 20 mg tablet 20 mg PO DAILY RF: 0 Discharge Instructions Instructions: Supraventricular Tachycardia (DC) Additional Instructions: resume usual medications. Stand Alone Forms: Nursing Discharge Form Referrals: Lucille Veliz MD [ [facility]YS[facility]IAN] - 11/04/20 1:00 pm Activity:: Activity as Tolerated Equipment/Supplies:: No Equipment Needed Diet:: As Tolerated Discharge Orders Discharge Orders: Discharge Order (Routine); Ordered 11/03/20 Ordered By: Viri Villagran Discharge Data Discharge Date/Time-TO BE ENTERED AT DEPARTURE: 11/03/20 13:33 DS: Summary Time Spent with Patient providing and/or coordinating discharge services: Greater than 30 minutes Status at Discharge Functional status at discharge: independent ambulation Overall status at discharge: patient is back to baseline Mental Status: mental status grossly normal Speech and Movement: speech and movement normal Mood: congruent mood Affect: normal affect Exam Psych Mental Status: mental status grossly normal Speech and Movement: speech and movement normal Mood: congruent mood Affect: normal affect DS: Data Vitals/I&O Vitals and I&O: Vital Signs Temperature 36 C L 11/03/20 10:41 Temperature Source Tympanic 11/03/20 10:40 Pulse 64 11/03/20 10:41 Pulse Rhythm Regular 11/03/20 10:56 Pulse 69 11/03/20 09:31 Respiratory Rate 17 11/03/20 10:41 Respiratory Effort Non-Labored 11/03/20 10:56 Respiratory Depth Normal 11/03/20 10:56 Respiratory Pattern Normal 11/03/20 10:56 Blood Pressure 152/73 H 11/03/20 10:41 Blood Pressure Mean 65 11/03/20 09:31 Blood Pressure Position Supine 11/02/20 14:47 Pulse Oximetry 97 11/03/20 10:41 Oxygen Delivery Method Room Air 11/03/20 10:41 Oxygen Flow Rate 0 11/03/20 10:41 Pain Level 0 11/03/20 10:41 Intake & Output 11/02/20 11/02/20 11/03/20 11:59 23:59 11:59 Intake Total 1004.667 / 1004.667 0 / 0 Balance 1004.667 / 1004.667 0 / 0 Weight 99.5 kg 96.4 kg Intake: IV 1004.667 / 1004.667 0 / 0 Other: # Voids 2 Data Completed and Pending Labs on day of discharge: Labs from last 24 hours 11/03/20 11/03/20 11/03/20 10:53 10:53 08:15 WBC 9.50 D RBC 3.37 L Hgb 11.3 L Hct 33.6 L MCV 99.7 H MCH 33.5 H MCHC 33.6 RDW 17.8 H Plt Count 237 D MPV 11.2 H Immature Gran % 1.6 Neutrophils % 46.0 Lymphocytes % 14.9 Monocytes % 36.0 Eosinophils % 0.9 Basophils % 0.6 Nucleated RBC % 0 Absolute Neutrophils 4.37 Absolute Lymphocytes 1.42 Absolute Monocytes 3.42 H Absolute Eosinophils 0.09 Absolute Basophils 0.06 RBC Morphology See below Poikilocytosis 1+ Anisocytosis 2+ Macrocytosis Ovalocytes 2+ PT INR APTT Sodium 139 Potassium 4.4 Chloride 106 Carbon Dioxide 24.3 Anion Gap 8.7 BUN 15 Creatinine 1.0 Estimated GFR/1.73 m2 >= 60.00 Glucose 108 H Calcium 8.5 Magnesium 1.8 Total Bilirubin AST ALT Alkaline Phosphatase Troponin I 0.17 H* Total Protein Albumin TSH COVID-19 Source Nasopharyx SARS-CoV-2 (PCR) Negative Influenza Type A (PCR) Negative Influenza Type B (PCR) Negative RSV (PCR) Negative 0311/02/20 11/02/20 00:45 21:45 18:45 WBC RBC Hgb Hct MCV MCH MCHC RDW Plt Count MPV Immature Gran % Neutrophils % Lymphocytes % Monocytes % Eosinophils % Basophils % Nucleated RBC % Absolute Neutrophils Absolute Lymphocytes Absolute Monocytes Absolute Eosinophils Absolute Basophils RBC Morphology Poikilocytosis Anisocytosis Macrocytosis Ovalocytes PT INR APTT Sodium Potassium Chloride Carbon Dioxide Anion Gap BUN Creatinine Estimated GFR/1.73 m2 Glucose Calcium Magnesium Total Bilirubin AST ALT Alkaline Phosphatase Troponin I 0.33 H* 0.40 H* 0.34 H* Total Protein Albumin TSH COVID-19 Source SARS-CoV-2 (PCR) Influenza Type A (PCR) Influenza Type B (PCR) RSV (PCR) 11/02/20 11/02/20 11/02/20 14:50 14:50 14:50 WBC 14.18 H RBC 3.79 L Hgb 12.6 L Hct 38.7 L MCV 102.1 H MCH 33.2 H MCHC 32.6 RDW 18.0 H Plt Count 338 MPV 10.3 Immature Gran % 2.4 Neutrophils % 41.3 Lymphocytes % 19.2 Monocytes % 35.3 Eosinophils % 0.8 Basophils % 1.0 Nucleated RBC % 0 Absolute Neutrophils 5.86 Absolute Lymphocytes 2.72 Absolute Monocytes 5.01 H Absolute Eosinophils 0.11 Absolute Basophils 0.14 RBC Morphology See below Poikilocytosis Anisocytosis Macrocytosis 2+ Ovalocytes PT 10.4 INR 1.0 APTT 26.0 Sodium 137 Potassium 4.8 Chloride 101 Carbon Dioxide 25.6 Anion Gap 10.4 BUN 19 H Creatinine 1.2 Estimated GFR/1.73 m2 58.71 Glucose 108 H Calcium 8.6 Magnesium 1.7 L Total Bilirubin 1.1 H AST 13 L ALT 18 Alkaline Phosphatase 77 Troponin I < 0.05 Total Protein 8.2 Albumin 4.1 TSH 1.98 COVID-19 Source SARS-CoV-2 (PCR) Influenza Type A (PCR) Influenza Type B (PCR) RSV (PCR) [facility] Medical History (Updated 11/03/20 @ 16:05 by Viri Villagran NP) CML (chronic myelocytic leukemia) HTN (hypertension) Hx of hyperlipidemia Kidney stones Obesity SVT (supraventricular tachycardia) Surgical History (Updated 11/03/20 @ 09:25 by Nelda Lance DO) Kidney stones kidney stone removal Social History Smoking/Tobacco Use Status: Former Tobacco Use Smoking risk assessment performed?: Yes Alcohol Intake: former Drug use: Never Do you feel safe at home: Yes Do you feel safe in your relationship?: Yes
[2020-11-03] MEDS: Hydroxyurea 500 MG CAP 1000 MG PO (12:20)
[2020-11-03] MEDS: Lisinopril 20 MG TAB PO (12:20)
[2020-11-03] MEDS: hydroCHLOROthiazide 25 MG TAB PO (12:20)
[2020-11-03] MEDS: Metoprolol 50 MG TAB PO (12:20)
== END 2020-11-03 13:33 | disposition home or self-care (01) ==
LOC: ER 11-03 09:33 → MS 11-03 10:37
PROVIDERS: Nurse Practitioner Acute Care; Physician Assistant; Student in an Organized Health Care Education/Training Program; Admitting Provider Internal Medicine; Emergency Provider Physician Assistant; PCP Nurse Practitioner Family; Visit Provider Internal Medicine
DX: I47.1 Supraventricular tachycardia (principal); R07.89 Other chest pain; R74.8 Abnormal levels of other serum enzymes; C92.10 Chronic myeloid leukemia, BCR/ABL-positive, not having achieved remission; I10 Essential (primary) hypertension
CPT/HCPCS: 36415; 80048; 80053; 93005; 93306; 96361; 96365; 96375; 96376; 99217; 99291; 71045; 78451; 83735; 84443; 84484; 85025; 85610; 85730; 93010; J0153; J9999

== ENCOUNTER → 2020-11-10 13:33 | Outpatient (BNVA) | payer MEDICARE, MEDICAID, SELFPAY | PROVIDERS: PCP Nurse Practitioner Family; Referring Provider Nurse Practitioner Family; Visit Provider Internal Medicine Cardiovascular Disease | DX: I47.1 Supraventricular tachycardia (principal); I10 Essential (primary) hypertension; Z79.891 Long term (current) use of opiate analgesic | CPT/HCPCS: 99204; 99213 ==

== ENCOUNTER → 2021-02-10 08:46 | Outpatient (BNVA) | payer MEDICARE, MEDICAID, SELFPAY | PROVIDERS: PCP Nurse Practitioner Family; Referring Provider Nurse Practitioner Family; Visit Provider Internal Medicine Cardiovascular Disease | DX: I47.1 Supraventricular tachycardia (principal); Z79.899 Other long term (current) drug therapy | CPT/HCPCS: 99213 ==

== ENCOUNTER 2021-02-28 15:51 | Outpatient (REF) | payer MEDICARE, MEDICAID, SELFPAY ==
[2021-02-28 21:47] LABS: Abs Immature Grans 0.13 10^3/uL (0.0-0.06); Absolute Basophil Count 0.13 10^3/uL (0.0-0.2); Absolute Eosinophil Count 0.16 10^3/uL (0.0-0.7); Absolute Lymphocyte Count 2.25 10^3/uL (1.2-3.4); Absolute Monocyte Count 3.36 10^3/uL (0.1-0.8); Absolute Neutrophil Count 4.39 10^3/uL (1.2-6.7); Basophils % 1.2; Eosinophils % 1.5; HCT 32.7 % (40.0-50.0); HGB 10.8 g/dL (13.5-17.5); Immature Grans % 1.2; Lymphocytes % 21.6; MCV 102.8 fL (80-95); MPV 11.9 fL (8.0-11.0); Monocytes % 32.2; Neutrophils % 42.3; Nucleated RBC 0 %; Platelet Count 181 10^3/uL (130-400); RBC 3.18 10^6/uL (4.36-5.78); RDW 19.6 % (11.8-14.1); RDW-SD 74.4 fL; WBC 10.42 10^3/uL (4.4-10.8)
[2021-02-28 22:32] LABS: Diff Comment Agrees w/ Instrument
[2021-02-28 22:33] LABS: Anisocytosis 1+; Macrocytosis 2+; Poikilocytes 1+
== END 2021-02-28 15:52 | disposition home or self-care (01) ==
LOC: NCHCN 15:51
PROVIDERS: PCP Nurse Practitioner Family; Visit Provider Nurse Practitioner Family
DX: C92.10 Chronic myeloid leukemia, BCR/ABL-positive, not having achieved remission (principal)
CPT/HCPCS: 85025

== ENCOUNTER 2021-06-13 10:42 | Outpatient (REF) | payer MEDICARE, MEDICAID, SELFPAY ==
[2021-06-13 13:57] LABS: Abs Immature Grans 0.14 10^3/uL (0.0-0.06); Absolute Basophil Count 0.11 10^3/uL (0.0-0.2); Absolute Lymphocyte Count 1.42 10^3/uL (1.2-3.4); Absolute Monocyte Count 2.42 10^3/uL (0.1-0.8); Absolute Neutrophil Count 4.02 10^3/uL (1.2-6.7); Basophils % 1.3; Eosinophils % 1.2; HCT 33.2 % (40.0-50.0); Immature Grans % 1.7; Lymphocytes % 17.3; MCH 34.7 pg (27.0-33.0); MCHC 33.1 % (32.0-36.0); MCV 104.7 fL (80-95); MPV 11.7 fL (8.0-11.0); Monocytes % 29.5; Nucleated RBC 0 %; Platelet Count 199 10^3/uL (130-400); RBC 3.17 10^6/uL (4.36-5.78); RDW 20.2 % (11.8-14.1); WBC 8.21 10^3/uL (4.4-10.8)
[2021-06-13 14:12] LABS: Anisocytosis 2+; Diff Comment Diff Reviewed; Macrocytosis 2+
[2021-06-13 14:13] LABS: Poikilocytes 2+
== END 2021-06-13 10:43 | disposition home or self-care (01) ==
LOC: LBN 10:42
PROVIDERS: PCP Nurse Practitioner Family; Visit Provider Nurse Practitioner Family
DX: C92.10 Chronic myeloid leukemia, BCR/ABL-positive, not having achieved remission (principal)
CPT/HCPCS: 85025

== ENCOUNTER → 2021-08-04 10:55 | Outpatient (BNVA) | payer MEDICARE, MEDICAID, SELFPAY | PROVIDERS: PCP Nurse Practitioner Family; Referring Provider Nurse Practitioner Family; Visit Provider Internal Medicine Cardiovascular Disease | DX: I47.1 Supraventricular tachycardia (principal) | CPT/HCPCS: 99212; 99442 ==

== ENCOUNTER 2021-12-07 14:54 | Outpatient (REF) | payer MEDICARE, MEDICAID, SELFPAY ==
[2021-12-07 18:47] LABS: Abs Immature Grans 4.58 10^3/uL (0.0-0.06); HCT 26.5 % (40.0-50.0); HGB 8.2 g/dL (13.5-17.5); MCH 35.5 pg (27.0-33.0); MCHC 30.9 % (32.0-36.0); MCV 114.7 fL (80-95); MPV 11.2 fL (8.0-11.0); Nucleated RBC 0.3 % (0.0-0.3); Platelet Count 462 10^3/uL (130-400); RBC 2.31 10^6/uL (4.36-5.78); RDW 21.2 % (11.8-14.1); RDW-SD 87.2 fL
[2021-12-07 20:47] LABS: Absolute Eosinophil Count 0.31 10^3/uL (0.0-0.7); Absolute Lymphocyte Count 2.83 10^3/uL (1.2-3.4); Absolute Monocyte Count 1.26 10^3/uL (0.1-0.8); Absolute Neutrophil Count 4.71 10^3/uL (1.2-6.7)
[2021-12-07 20:48] LABS: Diff Comment Manual Differential; Macrocytosis 3+; Myelocytes % 10
[2021-12-07 20:49] LABS: Other Cells % 61
[2021-12-08 11:03] LABS: WBC 31.42 10^3/uL (4.4-10.8)
== END 2021-12-07 14:55 | disposition home or self-care (01) ==
LOC: NCHCN 14:54
PROVIDERS: PCP Nurse Practitioner Family; Visit Provider Nurse Practitioner Family
DX: C92.10 Chronic myeloid leukemia, BCR/ABL-positive, not having achieved remission (principal)
CPT/HCPCS: 85025

== ENCOUNTER 2021-12-21 11:00 | Outpatient (RCR) | payer MEDICARE, MEDICAID, SELFPAY ==
[2021-12-18 10:51] LABS: HCT 24.9 % (40.0-50.0); HGB 7.8 g/dL (13.5-17.5); MCH 36.4 pg (27.0-33.0); MCHC 31.3 % (32.0-36.0); MCV 116.4 fL (80-95); MPV 10.7 fL (8.0-11.0); Platelet Count 370 10^3/uL (130-400); RBC 2.14 10^6/uL (4.36-5.78); RDW 20.1 % (11.8-14.1); RDW-SD 85.4 fL
[2021-12-18 11:03] LABS: ALT 14 U/L (16-63); AST 16 U/L (15-37); Albumin 3.8 g/dL (3.4-5.0); Alkaline Phosphatase 71 U/L (46-116); Anion Gap 3.1 mmol/L (3-11); BUN 19 mg/dL (7-18); Bilirubin, Total 0.9 mg/dL (0.2-1.0); CO2 24.9 mmol/L (21.0-32.0); CREATININE 1.2 mg/dL (0.70-1.30); Calcium 8.1 mg/dL (8.5-10.1); Chloride 107 mmol/L (98-107); Estimated GFR 58.56 (mL/min/1.73m2); Glucose 114 mg/dL (74-106); Potassium 4.3 mmol/L (3.5-5.1); Sodium 135 mmol/L (136-145); Total Protein 6.9 g/dL (6.4-8.2)
[2021-12-18 11:06] LABS: WBC 37.74 10^3/uL (4.4-10.8)
[2021-12-18 11:14] LABS: Absolute Basophil Count 0.38 10^3/uL (0.0-0.2); Absolute Eosinophil Count 0.75 10^3/uL (0.0-0.7); Absolute Lymphocyte Count 1.89 10^3/uL (1.2-3.4); Absolute Monocyte Count 2.26 10^3/uL (0.1-0.8); Absolute Neutrophil Count 13.21 10^3/uL (1.2-6.7); Bands % 6; Diff Comment Manual Differential; Metamyelocytes % 2; Myelocytes % 4
[2021-12-18 11:15] LABS: Other Cells % 45
[2021-12-18 11:16] LABS: Anisocytosis 2+; Macrocytosis 2+; Ovalocytes 2+; Polychromasia Present
[2021-12-18 11:18] LABS: Poikilocytes 2+
[2021-12-21 10:15] LABS: HCT 23.9 % (40.0-50.0); HGB 7.5 g/dL (13.5-17.5); MCH 36.4 pg (27.0-33.0); MCHC 31.4 % (32.0-36.0); MPV 11.1 fL (8.0-11.0); Platelet Count 211 10^3/uL (130-400); RBC 2.06 10^6/uL (4.36-5.78); RDW-SD 80.5 fL; WBC 4.31 10^3/uL (4.4-10.8)
[2021-12-21 10:31] LABS: ALT 14 U/L (16-63); AST 6 U/L (15-37); Albumin 3.4 g/dL (3.4-5.0); Alkaline Phosphatase 57 U/L (46-116); Anion Gap 7.5 mmol/L (3-11); BUN 22 mg/dL (7-18); Bilirubin, Total 2.4 mg/dL (0.2-1.0); CO2 24.5 mmol/L (21.0-32.0); CREATININE 1.2 mg/dL (0.70-1.30); Calcium 8.2 mg/dL (8.5-10.1); Chloride 108 mmol/L (98-107); Estimated GFR 58.56 (mL/min/1.73m2); Glucose 121 mg/dL (74-106); Potassium 4.7 mmol/L (3.5-5.1); Sodium 140 mmol/L (136-145); Total Protein 6.5 g/dL (6.4-8.2); Uric Acid 7.2 mg/dL (3.5-7.2)
[2021-12-21 10:57] LABS: Absolute Basophil Count 0.09 10^3/uL (0.0-0.2); Absolute Eosinophil Count 0.22 10^3/uL (0.0-0.7); Absolute Lymphocyte Count 0.65 10^3/uL (1.2-3.4); Absolute Monocyte Count 0.69 10^3/uL (0.1-0.8); Absolute Neutrophil Count 1.77 10^3/uL (1.2-6.7); Bands % 2
[2021-12-21 10:58] LABS: Anisocytosis 1+; Diff Comment Manual Differential; Metamyelocytes % 3; Myelocytes % 9; Other Cells % 19
[2021-12-21 10:59] LABS: Hypochromasia 2+; Macrocytosis 2+; Poikilocytes 2+; Polychromasia Present
[2021-12-21 13:07] VITALS: BP 121/70; PULSE 60; RESP 22; TEMP 36.3; O2SAT 100
[2021-12-21 13:22] VITALS: BP 109/67; PULSE 60; RESP 22; TEMP 36.7; O2SAT 98
[2021-12-21 13:41] VITALS: BP 106/83; PULSE 60; RESP 20; TEMP 37; O2SAT 98
[2021-12-21 14:13] VITALS: BP 108/65; PULSE 62; RESP 20; TEMP 36.7; O2SAT 98
[2021-12-21 14:52] VITALS: BP 106/83; PULSE 60; RESP 20; TEMP 37; O2SAT 98
[2021-12-21 15:27] VITALS: BP 116/69; PULSE 62; RESP 18; TEMP 36.6; O2SAT 100
== END 2021-12-23 23:59 | disposition home or self-care (01) ==
LOC: INF 11:00
PROVIDERS: PCP Nurse Practitioner Family; Visit Provider Internal Medicine Hematology & Oncology
DX: C93.10 Chronic myelomonocytic leukemia not having achieved remission (principal); C92.00 Acute myeloblastic leukemia, not having achieved remission
CPT/HCPCS: 36415; 36430; 80053; 86850; 86900; 86901; 86920; 84550; 85025; P9016

== ENCOUNTER 2022-01-18 02:47 | Outpatient (RCR) | payer MEDICARE, MEDICAID, SELFPAY ==
[2021-12-28 08:21] LABS: Abs Immature Grans 0.25 10^3/uL (0.0-0.06); HCT 24.3 % (40.0-50.0); HGB 7.8 g/dL (13.5-17.5); MCH 35.5 pg (27.0-33.0); MCHC 32.1 % (32.0-36.0); MCV 111 fL (80-95); MPV 11.4 fL (8.0-11.0); Platelet Count 154 10^3/uL (130-400); RDW 19.8 % (11.8-14.1); RDW-SD 80.5 fL
[2021-12-28 08:36] LABS: ALT 8 U/L (16-63); AST 5 U/L (15-37); Albumin 3.7 g/dL (3.4-5.0); Alkaline Phosphatase 77 U/L (46-116); BUN 17 mg/dL (7-18); Bilirubin, Total 1.9 mg/dL (0.2-1.0); CREATININE 1.3 mg/dL (0.70-1.30); Calcium 8.2 mg/dL (8.5-10.1); Chloride 104 mmol/L (98-107); Estimated GFR 53.39 (mL/min/1.73m2); Glucose 107 mg/dL (74-106); Potassium 4.1 mmol/L (3.5-5.1); Sodium 137 mmol/L (136-145); Total Protein 6.8 g/dL (6.4-8.2); Uric Acid 5.3 mg/dL (3.5-7.2)
[2021-12-28 08:45] LABS: Absolute Lymphocyte Count 0.48 10^3/uL (1.2-3.4); Absolute Monocyte Count 0.41 10^3/uL (0.1-0.8); Absolute Neutrophil Count 2.38 10^3/uL (1.2-6.7); Bands % 3; Metamyelocytes % 2; Myelocytes % 2
[2021-12-28 08:46] LABS: Diff Comment Manual Differential; Macrocytosis 2+; Poikilocytes 1+
[2021-12-28 10:55] VITALS: BP 100/63; PULSE 61; RESP 20; TEMP 36.4; O2SAT 99
[2021-12-28 11:09] VITALS: BP 95/60; PULSE 61; RESP 20; TEMP 35.9; O2SAT 98
[2021-12-28 11:39] VITALS: BP 96/60; PULSE 60; RESP 20; TEMP 36.4; O2SAT 98
[2021-12-28 12:36] VITALS: BP 97/62; PULSE 59; RESP 20; TEMP 36; O2SAT 97
[2021-12-28] MEDS: Normal Saline Flush 10 ML SYR IVP (12:46)
[2021-12-28] MEDS: Heparin 500 UNITS/5 ML SYRINGE IV (12:46)
[2022-01-04] MEDS: Normal Saline Flush 10 ML SYR IVP ×2 (08:09→09:22)
[2022-01-04 08:23] LABS: Abs Immature Grans 0.09 10^3/uL (0.0-0.06); Absolute Basophil Count 0.02 10^3/uL (0.0-0.2); Absolute Eosinophil Count 0.02 10^3/uL (0.0-0.7); Absolute Lymphocyte Count 0.53 10^3/uL (1.2-3.4); Absolute Monocyte Count 0.21 10^3/uL (0.1-0.8); Absolute Neutrophil Count 2.33 10^3/uL (1.2-6.7); Basophils % 0.6; Eosinophils % 0.6; HCT 25.2 % (40.0-50.0); HGB 8.1 g/dL (13.5-17.5); Immature Grans % 2.8; Lymphocytes % 16.6; MCH 34.6 pg (27.0-33.0); MCHC 32.1 % (32.0-36.0); MCV 108 fL (80-95); MPV 11.9 fL (8.0-11.0); Monocytes % 6.6; Neutrophils % 72.8; RBC 2.34 10^6/uL (4.36-5.78); RDW 19.1 % (11.8-14.1); RDW-SD 75.6 fL
[2022-01-04 08:34] LABS: ALT 8 U/L (16-63); AST 8 U/L (15-37); Albumin 3.9 g/dL (3.4-5.0); Alkaline Phosphatase 79 U/L (46-116); Anion Gap 7.9 mmol/L (3-11); BUN 25 mg/dL (7-18); Bilirubin, Total 1.8 mg/dL (0.2-1.0); CO2 25.1 mmol/L (21.0-32.0); CREATININE 1.3 mg/dL (0.70-1.30); Calcium 7.8 mg/dL (8.5-10.1); Chloride 103 mmol/L (98-107); Estimated GFR 53.39 (mL/min/1.73m2); Glucose 108 mg/dL (74-106); Potassium 4.3 mmol/L (3.5-5.1); Sodium 136 mmol/L (136-145); Total Protein 6.8 g/dL (6.4-8.2)
[2022-01-04 09:00] LABS: Diff Comment Diff Reviewed; Macrocytosis 2+; Platelet Count 69 10^3/uL (130-400)
[2022-01-04] MEDS: Heparin 500 UNITS/5 ML SYRINGE IV (09:22)
[2022-01-11 07:11] LABS: Abs Immature Grans 0.03 10^3/uL (0.0-0.06); Absolute Basophil Count 0.04 10^3/uL (0.0-0.2); Absolute Eosinophil Count 0.04 10^3/uL (0.0-0.7); Absolute Lymphocyte Count 0.97 10^3/uL (1.2-3.4); Absolute Monocyte Count 0.33 10^3/uL (0.1-0.8); Absolute Neutrophil Count 2.07 10^3/uL (1.2-6.7); Basophils % 1.1; Eosinophils % 1.1; HCT 23.3 % (40.0-50.0); HGB 7.4 g/dL (13.5-17.5); Immature Grans % 0.9; Lymphocytes % 27.9; MCH 34.3 pg (27.0-33.0); MCHC 31.8 % (32.0-36.0); MCV 108 fL (80-95); MPV 11.7 fL (8.0-11.0); Monocytes % 9.5; Neutrophils % 59.5; Platelet Count 225 10^3/uL (130-400); RBC 2.16 10^6/uL (4.36-5.78); RDW 19.3 % (11.8-14.1); WBC 3.48 10^3/uL (4.4-10.8)
[2022-01-11 07:26] LABS: ALT 13 U/L (16-63); AST 8 U/L (15-37); Albumin 3.6 g/dL (3.4-5.0); Alkaline Phosphatase 80 U/L (46-116); Anion Gap 3.5 mmol/L (3-11); BUN 23 mg/dL (7-18); Bilirubin, Total 0.8 mg/dL (0.2-1.0); CO2 24.5 mmol/L (21.0-32.0); CREATININE 1.2 mg/dL (0.70-1.30); Calcium 7.7 mg/dL (8.5-10.1); Chloride 105 mmol/L (98-107); Estimated GFR 58.56 (mL/min/1.73m2); Glucose 113 mg/dL (74-106); Potassium 4.2 mmol/L (3.5-5.1); Sodium 133 mmol/L (136-145); Total Protein 6.5 g/dL (6.4-8.2)
[2022-01-11] MEDS: Normal Saline Flush 10 ML SYR IVP (07:56)
[2022-01-11 09:20] VITALS: BP 123/70; PULSE 68; RESP 18; TEMP 36.6; O2SAT 99
[2022-01-11 09:40] VITALS: BP 99/62; PULSE 61; RESP 18; TEMP 36.7; O2SAT 100
[2022-01-11 09:55] VITALS: BP 101/63; PULSE 54; RESP 18; TEMP 36.6; O2SAT 99
[2022-01-11 11:10] VITALS: BP 104/63; PULSE 54; RESP 18; TEMP 36.5; O2SAT 100
[2022-01-18] MEDS: Normal Saline Flush 10 ML SYR IVP (08:10)
[2022-01-18 08:20] LABS: Abs Immature Grans 0.02 10^3/uL (0.0-0.06); Absolute Basophil Count 0.03 10^3/uL (0.0-0.2); Absolute Eosinophil Count 0.01 10^3/uL (0.0-0.7); Absolute Monocyte Count 1.41 10^3/uL (0.1-0.8); Absolute Neutrophil Count 0.91 10^3/uL (1.2-6.7); Eosinophils % 0.3; HGB 8.4 g/dL (13.5-17.5); Immature Grans % 0.6; Lymphocytes % 22.7; MCH 33.7 pg (27.0-33.0); MCHC 32.3 % (32.0-36.0); MCV 104 fL (80-95); MPV 11.7 fL (8.0-11.0); Monocytes % 45.8; Neutrophils % 29.6; Platelet Count 176 10^3/uL (130-400); RBC 2.49 10^6/uL (4.36-5.78); RDW 18.6 % (11.8-14.1); RDW-SD 70.9 fL; WBC 3.08 10^3/uL (4.4-10.8)
[2022-01-18 08:42] LABS: Anisocytosis 1+; Diff Comment Agrees w/ Instrument; Hypochromasia 1+; Macrocytosis 1+; Poikilocytes 1+; Polychromasia Present
== END 2022-01-23 23:59 | disposition home or self-care (01) ==
LOC: INF 02:47
PROVIDERS: PCP Nurse Practitioner Family; Visit Provider Internal Medicine Hematology & Oncology
DX: C92.00 Acute myeloblastic leukemia, not having achieved remission (principal); Z45.2 Encounter for adjustment and management of vascular access device
CPT/HCPCS: 36415; 36430; 36591; 80053; 86850; 86900; 86901; 86920; 84550; 85025; P9016

== ENCOUNTER → 2022-02-02 11:38 | Outpatient (BNVA) | payer MEDICARE, MEDICAID, SELFPAY | PROVIDERS: PCP Nurse Practitioner Family; Referring Provider Nurse Practitioner Family; Visit Provider Internal Medicine Cardiovascular Disease | DX: I47.1 Supraventricular tachycardia (principal); C92.00 Acute myeloblastic leukemia, not having achieved remission | CPT/HCPCS: 99214; 99213 ==

== ENCOUNTER 2022-02-22 02:09 | Outpatient (RCR) | payer MEDICARE, MEDICAID, SELFPAY ==
[2022-01-24 00:11] VITALS: BP 104/63; PULSE 54; RESP 18; TEMP 36.5
[2022-01-25] MEDS: Normal Saline Flush 10 ML SYR IVP ×2 (08:15→09:30)
[2022-01-25 08:44] LABS: Absolute Basophil Count 0.08 10^3/uL (0.0-0.2); Absolute Lymphocyte Count 0.81 10^3/uL (1.2-3.4); Absolute Monocyte Count 1.23 10^3/uL (0.1-0.8); Basophils % 2.6; HCT 28.6 % (40.0-50.0); HGB 9.1 g/dL (13.5-17.5); Immature Grans % 3.2; MCH 32.2 pg (27.0-33.0); MCHC 31.8 % (32.0-36.0); MCV 101 fL (80-95); MPV 10.9 fL (8.0-11.0); Monocytes % 39.4; Neutrophils % 28.8; Platelet Count 423 10^3/uL (130-400); RBC 2.83 10^6/uL (4.36-5.78); RDW 19.3 % (11.8-14.1); RDW-SD 71.7 fL; WBC 3.12 10^3/uL (4.4-10.8)
[2022-01-25 09:18] LABS: Diff Comment Diff Reviewed; RBC Morphology Normal
[2022-01-25] MEDS: Heparin 500 UNITS/5 ML SYRINGE IV (09:30)
[2022-02-01] MEDS: Normal Saline Flush 10 ML SYR IVP ×2 (08:12→08:39)
[2022-02-01 08:15] LABS: Abs Immature Grans 0.08 10^3/uL (0.0-0.06); Absolute Basophil Count 0.08 10^3/uL (0.0-0.2); Absolute Eosinophil Count 0.03 10^3/uL (0.0-0.7); Absolute Lymphocyte Count 0.86 10^3/uL (1.2-3.4); Basophils % 1.8; Eosinophils % 0.7; HCT 31.7 % (40.0-50.0); HGB 10.3 g/dL (13.5-17.5); Immature Grans % 1.8; Lymphocytes % 19.8; MCH 31.9 pg (27.0-33.0); MCHC 32.5 % (32.0-36.0); MCV 98 fL (80-95); MPV 11.5 fL (8.0-11.0); Monocytes % 25.3; Neutrophils % 50.6; Platelet Count 150 10^3/uL (130-400); RBC 3.23 10^6/uL (4.36-5.78); RDW 18.6 % (11.8-14.1); RDW-SD 67.5 fL; WBC 4.34 10^3/uL (4.4-10.8)
[2022-02-01] MEDS: Heparin 500 UNITS/5 ML SYRINGE IV (08:39)
[2022-02-08 08:23] LABS: Abs Immature Grans 0.06 10^3/uL (0.0-0.06); Absolute Basophil Count 0.04 10^3/uL (0.0-0.2); Absolute Eosinophil Count 0.08 10^3/uL (0.0-0.7); Absolute Lymphocyte Count 1.04 10^3/uL (1.2-3.4); Absolute Neutrophil Count 2.37 10^3/uL (1.2-6.7); HCT 32.1 % (40.0-50.0); HGB 10.2 g/dL (13.5-17.5); Immature Grans % 1.5; Lymphocytes % 26.1; MCH 30.5 pg (27.0-33.0); MCHC 31.8 % (32.0-36.0); MCV 96 fL (80-95); Neutrophils % 59.4; Platelet Count 183 10^3/uL (130-400); RBC 3.34 10^6/uL (4.36-5.78); RDW 18.8 % (11.8-14.1); WBC 3.99 10^3/uL (4.4-10.8)
[2022-02-08] MEDS: Heparin 500 UNITS/5 ML SYRINGE IV (08:34)
[2022-02-08] MEDS: Normal Saline Flush 10 ML SYR IVP (08:35)
[2022-02-08 08:39] LABS: AST < 5 U/L (15-37); Albumin 3.9 g/dL (3.4-5.0); Alkaline Phosphatase 79 U/L (46-116); Anion Gap 6.2 mmol/L (3-11); BUN 22 mg/dL (7-18); Bilirubin, Total 1.4 mg/dL (0.2-1.0); CO2 25.8 mmol/L (21.0-32.0); CREATININE 1.4 mg/dL (0.70-1.30); Chloride 106 mmol/L (98-107); Estimated GFR 49.01 (mL/min/1.73m2); Glucose 107 mg/dL (74-106); Potassium 4.4 mmol/L (3.5-5.1); Sodium 138 mmol/L (136-145); Total Protein 6.8 g/dL (6.4-8.2)
[2022-02-08 08:41] LABS: ALT < 6 U/L (16-63)
[2022-02-15] MEDS: Normal Saline Flush 10 ML SYR IVP ×2 (08:28→09:05)
[2022-02-15 08:34] LABS: Abs Immature Grans 0.06 10^3/uL (0.0-0.06); Absolute Basophil Count 0.08 10^3/uL (0.0-0.2); Absolute Eosinophil Count 0.11 10^3/uL (0.0-0.7); Absolute Lymphocyte Count 1.07 10^3/uL (1.2-3.4); Absolute Monocyte Count 0.85 10^3/uL (0.1-0.8); Absolute Neutrophil Count 1.82 10^3/uL (1.2-6.7); Eosinophils % 2.8; HCT 32.6 % (40.0-50.0); HGB 10.4 g/dL (13.5-17.5); Immature Grans % 1.5; Lymphocytes % 26.8; MCH 29.5 pg (27.0-33.0); MCHC 31.9 % (32.0-36.0); MCV 93 fL (80-95); MPV 11.4 fL (8.0-11.0); Monocytes % 21.3; Neutrophils % 45.6; Nucleated RBC 0.5 % (0.0-0.3); Platelet Count 280 10^3/uL (130-400); RBC 3.52 10^6/uL (4.36-5.78); RDW 18.8 % (11.8-14.1); RDW-SD 64.1 fL; WBC 3.99 10^3/uL (4.4-10.8)
[2022-02-15] MEDS: Heparin 500 UNITS/5 ML SYRINGE IV (09:04)
[2022-02-22 08:19] LABS: HCT 33.8 % (40.0-50.0); HGB 10.7 g/dL (13.5-17.5); MCHC 31.7 % (32.0-36.0); MCV 92 fL (80-95); MPV 11.6 fL (8.0-11.0); Platelet Count 512 10^3/uL (130-400); RBC 3.69 10^6/uL (4.36-5.78); RDW 19.5 % (11.8-14.1); RDW-SD 64.4 fL; WBC 7.05 10^3/uL (4.4-10.8)
[2022-02-22 08:32] LABS: Absolute Basophil Count 0.42 10^3/uL (0.0-0.2); Absolute Eosinophil Count 0.35 10^3/uL (0.0-0.7); Absolute Lymphocyte Count 1.97 10^3/uL (1.2-3.4); Absolute Neutrophil Count 1.55 10^3/uL (1.2-6.7); Atypical Lymphocytes % 3; Bands % 5; Metamyelocytes % 2; Myelocytes % 1; Other Cells % 2
[2022-02-22 08:33] LABS: Diff Comment Manual Differential; Poikilocytes 2+
[2022-02-22] MEDS: Normal Saline Flush 10 ML SYR IVP (09:23)
[2022-02-22] MEDS: Heparin 500 UNITS/5 ML SYRINGE IV (09:23)
== END 2022-02-22 23:59 | disposition home or self-care (01) ==
LOC: INF 02:09
PROVIDERS: PCP Nurse Practitioner Family; Visit Provider Internal Medicine Hematology & Oncology
DX: C92.00 Acute myeloblastic leukemia, not having achieved remission (principal); Z45.2 Encounter for adjustment and management of vascular access device
CPT/HCPCS: 36415; 36591; 80053; 86900; 86901; 85025

== ENCOUNTER 2022-03-22 02:42 | Outpatient (RCR) | payer MEDICARE, MEDICAID, SELFPAY ==
[2022-02-23 00:17] VITALS: BP 104/63; PULSE 54; RESP 18; TEMP 36.5
[2022-03-01 08:38] LABS: Abs Immature Grans 4.42 10^3/uL (0.0-0.06); HCT 34.5 % (40.0-50.0); HGB 10.8 g/dL (13.5-17.5); MCH 28.3 pg (27.0-33.0); MCHC 31.3 % (32.0-36.0); MCV 90 fL (80-95); MPV 11.4 fL (8.0-11.0); Platelet Count 485 10^3/uL (130-400); RBC 3.82 10^6/uL (4.36-5.78); RDW 19.5 % (11.8-14.1); RDW-SD 63.2 fL; WBC 19.67 10^3/uL (4.4-10.8)
[2022-03-01] MEDS: Normal Saline Flush 10 ML SYR IVP (08:44)
[2022-03-01] MEDS: Heparin 500 UNITS/5 ML SYRINGE IV (08:47)
[2022-03-01 09:14] LABS: Absolute Lymphocyte Count 4.72 10^3/uL (1.2-3.4); Absolute Monocyte Count 3.93 10^3/uL (0.1-0.8); Absolute Neutrophil Count 9.64 10^3/uL (1.2-6.7); Atypical Lymphocytes % 7; Bands % 10; Metamyelocytes % 2; Myelocytes % 2; Other Cells % 2
[2022-03-01 09:15] LABS: Diff Comment Manual Differential; Polychromasia Present
[2022-03-01 09:16] LABS: Poikilocytes 1+
[2022-03-05] MEDS: Normal Saline Flush 10 ML SYR IVP (08:35)
[2022-03-05 08:57] LABS: HCT 33.3 % (40.0-50.0); HGB 10.6 g/dL (13.5-17.5); MCH 28.8 pg (27.0-33.0); MCHC 31.8 % (32.0-36.0); MCV 91 fL (80-95); MPV 12.1 fL (8.0-11.0); Platelet Count 432 10^3/uL (130-400); RBC 3.68 10^6/uL (4.36-5.78); RDW 19.7 % (11.8-14.1); RDW-SD 64.5 fL
[2022-03-05 09:01] LABS: Absolute Lymphocyte Count 2.89 10^3/uL (1.2-3.4)
[2022-03-05 09:02] LABS: WBC 36.18 10^3/uL (4.4-10.8)
[2022-03-05 09:15] LABS: Absolute Basophil Count 0.72 10^3/uL (0.0-0.2); Absolute Monocyte Count 5.43 10^3/uL (0.1-0.8); Absolute Neutrophil Count 22.07 10^3/uL (1.2-6.7); Bands % 10; Diff Comment Manual Differential; Metamyelocytes % 6; Myelocytes % 8; RBC Morphology Normal
[2022-03-05 09:18] LABS: ALT 16 U/L (16-63); AST 18 U/L (15-37); Albumin 3.9 g/dL (3.4-5.0); Alkaline Phosphatase 76 U/L (46-116); Anion Gap 9.2 mmol/L (3-11); BUN 21 mg/dL (7-18); Bilirubin, Total 0.7 mg/dL (0.2-1.0); CO2 26.8 mmol/L (21.0-32.0); CREATININE 1.3 mg/dL (0.70-1.30); Calcium 8.3 mg/dL (8.5-10.1); Chloride 103 mmol/L (98-107); Estimated GFR 53.39 (mL/min/1.73m2); Glucose 107 mg/dL (74-106); Potassium 4.8 mmol/L (3.5-5.1); Sodium 139 mmol/L (136-145); Total Protein 7.1 g/dL (6.4-8.2)
[2022-03-15] MEDS: Normal Saline Flush 10 ML SYR IVP ×2 (07:50→09:05)
[2022-03-15 08:41] LABS: Abs Immature Grans 0.59 10^3/uL (0.0-0.06); HCT 34.2 % (40.0-50.0); HGB 10.7 g/dL (13.5-17.5); MCH 27.9 pg (27.0-33.0); MCHC 31.3 % (32.0-36.0); MCV 89 fL (80-95); Platelet Count 317 10^3/uL (130-400); RBC 3.84 10^6/uL (4.36-5.78); RDW 20.1 % (11.8-14.1); RDW-SD 65.5 fL; WBC 15.96 10^3/uL (4.4-10.8)
[2022-03-15] MEDS: Heparin 500 UNITS/5 ML SYRINGE IV (09:05)
[2022-03-15 09:21] LABS: Bands % 15
[2022-03-15 09:22] LABS: Absolute Monocyte Count 1.76 10^3/uL (0.1-0.8); Absolute Neutrophil Count 11.65 10^3/uL (1.2-6.7); Atypical Lymphocytes % 4; Metamyelocytes % 5; Myelocytes % 1
[2022-03-15 09:23] LABS: Anisocytosis 2+; Diff Comment Manual Differential
[2022-03-15 09:24] LABS: Polychromasia Present
[2022-03-22 08:13] LABS: HCT 32.2 % (40.0-50.0); HGB 10.4 g/dL (13.5-17.5); MCHC 32.3 % (32.0-36.0); MCV 87 fL (80-95); RBC 3.71 10^6/uL (4.36-5.78); RDW 19.5 % (11.8-14.1); RDW-SD 62.2 fL; WBC 7.25 10^3/uL (4.4-10.8)
[2022-03-22] MEDS: Normal Saline Flush 10 ML SYR IVP ×2 (08:21→08:45)
[2022-03-22 08:32] LABS: ALT 10 U/L (16-63); AST 8 U/L (15-37); Albumin 3.9 g/dL (3.4-5.0); Alkaline Phosphatase 63 U/L (46-116); Anion Gap 8.6 mmol/L (3-11); BUN 21 mg/dL (7-18); Bilirubin, Total 1.5 mg/dL (0.2-1.0); CO2 25.4 mmol/L (21.0-32.0); CREATININE 1.3 mg/dL (0.70-1.30); Calcium 8.3 mg/dL (8.5-10.1); Chloride 105 mmol/L (98-107); Estimated GFR 53.39 (mL/min/1.73m2); Glucose 111 mg/dL (74-106); Potassium 4.3 mmol/L (3.5-5.1); Sodium 139 mmol/L (136-145)
[2022-03-22] MEDS: Heparin 500 UNITS/5 ML SYRINGE IV (08:45)
[2022-03-22 08:56] LABS: Absolute Eosinophil Count 0.07 10^3/uL (0.0-0.7); Absolute Monocyte Count 2.47 10^3/uL (0.1-0.8); Absolute Neutrophil Count 3.12 10^3/uL (1.2-6.7); Atypical Lymphocytes % 4; Bands % 1; Diff Comment Manual Differential
[2022-03-22 08:57] LABS: Poikilocytes 2+
== END 2022-03-25 23:59 | disposition home or self-care (01) ==
LOC: INF 02:42
PROVIDERS: PCP Nurse Practitioner Family; Visit Provider Internal Medicine Hematology & Oncology
DX: C92.00 Acute myeloblastic leukemia, not having achieved remission (principal); Z45.2 Encounter for adjustment and management of vascular access device
CPT/HCPCS: 36591; 80053; 86900; 86901; 85025

== ENCOUNTER 2022-04-12 03:00 | Outpatient (RCR) | payer MEDICARE, MEDICAID, SELFPAY ==
[2022-03-26 00:08] VITALS: BP 104/63; PULSE 54; RESP 18; TEMP 36.5
[2022-04-12] MEDS: Normal Saline Flush 10 ML SYR IVP (12:02)
[2022-04-12] MEDS: Heparin 500 UNITS/5 ML SYRINGE IV (12:02)
[2022-04-12 12:10] LABS: Abs Immature Grans 1.08 10^3/uL (0.0-0.06); HCT 34.1 % (40.0-50.0); MCH 27.5 pg (27.0-33.0); MCHC 32.3 % (32.0-36.0); MCV 85 fL (80-95); MPV 12.4 fL (8.0-11.0); Platelet Count 282 10^3/uL (130-400); RDW 20.2 % (11.8-14.1); RDW-SD 62.4 fL; WBC 9.66 10^3/uL (4.4-10.8)
[2022-04-12 12:24] LABS: ALT 16 U/L (16-63); AST 13 U/L (15-37); Albumin 3.9 g/dL (3.4-5.0); Alkaline Phosphatase 71 U/L (46-116); Anion Gap 7.4 mmol/L (3-11); BUN 17 mg/dL (7-18); Bilirubin, Total 1.1 mg/dL (0.2-1.0); CO2 27.6 mmol/L (21.0-32.0); CREATININE 1.1 mg/dL (0.70-1.30); Calcium 8.4 mg/dL (8.5-10.1); Chloride 104 mmol/L (98-107); Glucose 109 mg/dL (74-106); Potassium 4.5 mmol/L (3.5-5.1); Sodium 139 mmol/L (136-145); Total Protein 7.1 g/dL (6.4-8.2)
[2022-04-12 12:27] LABS: Absolute Basophil Count 0.39 10^3/uL (0.0-0.2); Absolute Lymphocyte Count 2.42 10^3/uL (1.2-3.4); Absolute Monocyte Count 4.44 10^3/uL (0.1-0.8); Absolute Neutrophil Count 2.03 10^3/uL (1.2-6.7); Bands % 1
[2022-04-12 12:28] LABS: Anisocytosis 2+; Diff Comment Manual Differential; Myelocytes % 4; Polychromasia Present
[2022-04-12 12:29] LABS: Poikilocytes 1+
== END 2022-04-25 23:59 | disposition home or self-care (01) ==
LOC: INF 03:00
PROVIDERS: PCP Nurse Practitioner Family; Visit Provider Internal Medicine Hematology & Oncology
DX: C92.00 Acute myeloblastic leukemia, not having achieved remission (principal); Z45.2 Encounter for adjustment and management of vascular access device
CPT/HCPCS: 36591; 80053; 85025

== ENCOUNTER 2022-05-24 03:56 | Outpatient (RCR) | payer MEDICARE, MEDICAID, SELFPAY ==
[2022-04-26 00:04] VITALS: BP 104/63; PULSE 54; RESP 18; TEMP 36.5
[2022-05-03] MEDS: Heparin 500 UNITS/5 ML SYRINGE (10:34)
[2022-05-03] MEDS: Normal Saline Flush 10 ML SYR IVP (10:35)
[2022-05-03 11:12] LABS: Abs Immature Grans 0.06 10^3/uL (0.0-0.06); Absolute Basophil Count 0.05 10^3/uL (0.0-0.2); Absolute Eosinophil Count 0.05 10^3/uL (0.0-0.7); Absolute Lymphocyte Count 1.01 10^3/uL (1.2-3.4); Absolute Monocyte Count 2.27 10^3/uL (0.1-0.8); Absolute Neutrophil Count 1.53 10^3/uL (1.2-6.7); HCT 32.9 % (40.0-50.0); HGB 10.6 g/dL (13.5-17.5); Immature Grans % 1.2; Lymphocytes % 20.3; MCHC 32.2 % (32.0-36.0); MCV 84 fL (80-95); Monocytes % 45.7; Neutrophils % 30.8; Platelet Count 120 10^3/uL (130-400); RBC 3.92 10^6/uL (4.36-5.78); RDW 20.9 % (11.8-14.1); RDW-SD 63.1 fL; WBC 4.97 10^3/uL (4.4-10.8)
[2022-05-03 11:27] LABS: ALT 13 U/L (16-63); AST 9 U/L (15-37); Albumin 3.8 g/dL (3.4-5.0); Alkaline Phosphatase 53 U/L (46-116); Anion Gap 7.8 mmol/L (3-11); BUN 21 mg/dL (7-18); Bilirubin, Total 1.8 mg/dL (0.2-1.0); CO2 26.2 mmol/L (21.0-32.0); CREATININE 1.2 mg/dL (0.70-1.30); Calcium 8.4 mg/dL (8.5-10.1); Chloride 105 mmol/L (98-107); Glucose 101 mg/dL (74-106); Potassium 4.6 mmol/L (3.5-5.1); Sodium 139 mmol/L (136-145); Total Protein 7.1 g/dL (6.4-8.2)
[2022-05-03 11:31] LABS: Anisocytosis 2+; Diff Comment Diff Reviewed; Poikilocytes 2+
[2022-05-24 10:45] LABS: Abs Immature Grans 2.07 10^3/uL (0.0-0.06); HCT 32.9 % (40.0-50.0); HGB 10.4 g/dL (13.5-17.5); MCH 26.8 pg (27.0-33.0); MCHC 31.6 % (32.0-36.0); MCV 85 fL (80-95); MPV 11.3 fL (8.0-11.0); RBC 3.88 10^6/uL (4.36-5.78); RDW 22.9 % (11.8-14.1)
[2022-05-24] MEDS: Normal Saline Flush 10 ML SYR IVP (10:55)
[2022-05-24] MEDS: Heparin 500 UNITS/5 ML SYRINGE (10:55)
[2022-05-24 11:08] LABS: ALT 15 U/L (16-63); AST 9 U/L (15-37); Albumin 3.8 g/dL (3.4-5.0); Alkaline Phosphatase 68 U/L (46-116); Anion Gap 6.2 mmol/L (3-11); BUN 15 mg/dL (7-18); Bilirubin, Total 1.1 mg/dL (0.2-1.0); CO2 28.8 mmol/L (21.0-32.0); CREATININE 1.2 mg/dL (0.70-1.30); Calcium 8.7 mg/dL (8.5-10.1); Chloride 102 mmol/L (98-107); Glucose 100 mg/dL (74-106); Potassium 4.6 mmol/L (3.5-5.1); Sodium 137 mmol/L (136-145)
[2022-05-24 11:12] LABS: Absolute Basophil Count 0.35 10^3/uL (0.0-0.2); Absolute Eosinophil Count 0.12 10^3/uL (0.0-0.7); Absolute Lymphocyte Count 2.69 10^3/uL (1.2-3.4); Absolute Monocyte Count 5.97 10^3/uL (0.1-0.8); Absolute Neutrophil Count 1.99 10^3/uL (1.2-6.7); Anisocytosis 2+; Bands % 1; Diff Comment Manual Differential; Hypochromasia 2+; Metamyelocytes % 3; Myelocytes % 2; Platelet Count 281 10^3/uL (130-400); Polychromasia Present
[2022-05-24 11:13] LABS: Poikilocytes 3+
== END 2022-05-25 23:59 | disposition home or self-care (01) ==
LOC: INF 03:56
PROVIDERS: PCP Nurse Practitioner Family; Visit Provider Internal Medicine Hematology & Oncology
DX: C92.00 Acute myeloblastic leukemia, not having achieved remission (principal); Z45.2 Encounter for adjustment and management of vascular access device
CPT/HCPCS: 36591; 80053; 85025

== ENCOUNTER 2022-07-05 10:03 | Outpatient (RCR) | payer MEDICARE, MEDICAID, SELFPAY ==
[2022-07-05 10:22] LABS: HCT 30.6 % (40.0-50.0); HGB 9.6 g/dL (13.5-17.5); MCH 26.4 pg (27.0-33.0); MCHC 31.4 % (32.0-36.0); MCV 84 fL (80-95); Platelet Count 312 10^3/uL (130-400); RBC 3.63 10^6/uL (4.36-5.78); RDW 24.1 % (11.8-14.1); RDW-SD 72.9 fL; WBC 14.87 10^3/uL (4.4-10.8)
[2022-07-05 10:36] LABS: ALT 12 U/L (16-63); AST 12 U/L (15-37); Albumin 3.6 g/dL (3.4-5.0); Alkaline Phosphatase 74 U/L (46-116); Anion Gap 5.2 mmol/L (3-11); BUN 19 mg/dL (7-18); Bilirubin, Total 1.2 mg/dL (0.2-1.0); CO2 27.8 mmol/L (21.0-32.0); CREATININE 1.5 mg/dL (0.70-1.30); Calcium 8.3 mg/dL (8.5-10.1); Chloride 106 mmol/L (98-107); Estimated GFR 47.06 (mL/min/1.73m2); Glucose 104 mg/dL (74-106); Potassium 4.2 mmol/L (3.5-5.1); Sodium 139 mmol/L (136-145); Total Protein 6.6 g/dL (6.4-8.2)
[2022-07-05] MEDS: Normal Saline Flush 10 ML SYR IVP (10:40)
[2022-07-05] MEDS: Heparin 500 UNITS/5 ML SYRINGE (10:41)
[2022-07-05 10:51] LABS: Absolute Neutrophil Count 5.06 10^3/uL (1.2-6.7); Atypical Lymphocytes % 17; Bands % 4; Metamyelocytes % 5; Myelocytes % 7
[2022-07-05 10:52] LABS: Anisocytosis 1+; Basophilic Stippling Present; Diff Comment Manual Differential; Macrocytosis 1+; Microcytosis 1+; Other Cells % 2
[2022-07-05 10:53] LABS: Polychromasia Present; Schistocytes 2+
[2022-07-05 10:54] LABS: Poikilocytes 2+
[2022-07-05 10:58] LABS: Absolute Monocyte Count 2.23 10^3/uL (0.1-0.8)
== END 2022-07-25 23:59 | disposition home or self-care (01) ==
LOC: INF 10:03
PROVIDERS: PCP Nurse Practitioner Family; Visit Provider Internal Medicine Hematology & Oncology
DX: C92.00 Acute myeloblastic leukemia, not having achieved remission (principal); Z45.2 Encounter for adjustment and management of vascular access device
CPT/HCPCS: 36591; 80053; 85025

== ENCOUNTER 2022-08-23 01:53 | Outpatient (RCR) | payer MEDICARE, MEDICAID, SELFPAY ==
[2022-08-23 09:43] LABS: Abs Immature Grans 9.43 10^3/uL (0.0-0.06); HGB 8.5 g/dL (13.5-17.5); MCH 24.5 pg (27.0-33.0); MCHC 30.4 % (32.0-36.0); MCV 81 fL (80-95); MPV 10.3 fL (8.0-11.0); Platelet Count 494 10^3/uL (130-400); RBC 3.47 10^6/uL (4.36-5.78)
[2022-08-23 09:56] LABS: ALT 11 U/L (16-63); AST 24 U/L (15-37); Albumin 3.8 g/dL (3.4-5.0); Alkaline Phosphatase 96 U/L (46-116); Anion Gap 8.2 mmol/L (3-11); BUN 30 mg/dL (7-18); Bilirubin, Total 0.9 mg/dL (0.2-1.0); CO2 24.8 mmol/L (21.0-32.0); CREATININE 1.9 mg/dL (0.70-1.30); Calcium 8.4 mg/dL (8.5-10.1); Chloride 106 mmol/L (98-107); Estimated GFR 35.44 (mL/min/1.73m2); Glucose 167 mg/dL (74-106); Sodium 139 mmol/L (136-145)
[2022-08-23] MEDS: Heparin 500 UNITS/5 ML SYRINGE IV (10:08)
[2022-08-23] MEDS: Normal Saline Flush 10 ML SYR IVP (10:08)
[2022-08-23 10:31] LABS: Absolute Neutrophil Count 9.11 10^3/uL (1.2-6.7); Bands % 2
[2022-08-23 10:32] LABS: Absolute Lymphocyte Count 19.24 10^3/uL (1.2-3.4); Absolute Monocyte Count 44.55 10^3/uL (0.1-0.8); Atypical Lymphocytes % 9; Metamyelocytes % 4; Myelocytes % 5; Other Cells % 19
[2022-08-23 10:33] LABS: Anisocytosis 1+; Diff Comment Manual Differential; Hypochromasia 1+; Microcytosis 1+; Polychromasia Present; Schistocytes 2+
[2022-08-23 10:39] LABS: WBC 101.26 10^3/uL (4.4-10.8)
== END 2022-08-25 23:59 | disposition home or self-care (01) ==
LOC: INF 01:53
PROVIDERS: PCP Nurse Practitioner Family; Visit Provider Internal Medicine Hematology & Oncology
DX: C92.00 Acute myeloblastic leukemia, not having achieved remission (principal); Z45.2 Encounter for adjustment and management of vascular access device
CPT/HCPCS: 36591; 80053; 85025